=== PATIENT | female | born 1945 | race Caucasian/White ===

== ENCOUNTER → 2017-11-22 | Outpatient (CLI) | payer OTHER | END | disposition home or self-care (01) | LOC: RAH 08:27 | PROVIDERS: ATTEND Family Medicine | DX: R14.0 Abdominal distension (gaseous) (principal); R10.84 Generalized abdominal pain | CPT/HCPCS: 76700 ==

== ENCOUNTER → 2022-06-15 | Outpatient (CLI) | payer MEDICARE | END | disposition home or self-care (01) | LOC: SHCH 11:37 | PROVIDERS: ATTEND Internal Medicine Cardiovascular Disease | DX: I35.8 Other nonrheumatic aortic valve disorders (principal); I11.9 Hypertensive heart disease without heart failure; E78.5 Hyperlipidemia, unspecified | CPT/HCPCS: 93306 ==

== ENCOUNTER → 2022-06-17 | Outpatient (CLI) | payer MEDICARE | END | disposition home or self-care (01) | LOC: SHCH 12:51 | PROVIDERS: ATTEND Internal Medicine Cardiovascular Disease | DX: I87.2 Venous insufficiency (chronic) (peripheral) (principal); M71.21 Synovial cyst of popliteal space [Baker], right knee; I70.203 Unspecified atherosclerosis of native arteries of extremities, bilateral legs | CPT/HCPCS: 93925; 93970 ==

== ENCOUNTER → 2022-09-25 | Outpatient (CLI) | payer MEDICARE | END | disposition home or self-care (01) | LOC: SHCH 16:01 | PROVIDERS: ATTEND Internal Medicine Cardiovascular Disease | DX: I87.2 Venous insufficiency (chronic) (peripheral) (principal); I82.812 Embolism and thrombosis of superficial veins of left lower extremity; Z98.890 Other specified postprocedural states | CPT/HCPCS: 93971 ==

== ENCOUNTER → 2022-12-05 | Outpatient (CLI) | payer MEDICARE ==
[~2022-12-05] MED LIST: IOHEXOL 350 MG/ML 100ML INFUS..BTL IV ONE; IOHEXOL-350 50ML VIAL IV ONE
== END | disposition home or self-care (01) ==
LOC: RAH 10:20
PROVIDERS: ATTEND Internal Medicine Cardiovascular Disease
DX: Q25.46 Tortuous aortic arch (principal); I73.9 Peripheral vascular disease, unspecified; I70.8 Atherosclerosis of other arteries
CPT/HCPCS: 75635; Q9967 ×2

== ENCOUNTER 2022-12-30 21:32 | Inpatient (IN) | payer MEDICARE ==
[~2022-12-30] VITALS: Ht 162.6 cm; Wt 91.2 kg
[2022-12-30 21:36] LABS: ABG HCO3 17.3 mmol/L (21.0-28.0); ABG OXYGEN SATURATION 88.6 % (95.0-99.0); ABG PCO2 39 mmHg (32-45)
[2022-12-30] MEDS ORDERED: MORPHINE 2 MG SYG ONE (21:40)
[2022-12-30] MEDS ORDERED: NITROGLYCERIN 1GM OINT 1 INCH/1GM TD ONE ×2 (21:40→22:00)
[2022-12-30] MEDS ORDERED: FUROSEMIDE 40MG VIAL ONE (21:40)
[2022-12-30] MEDS ORDERED: ONDANSETRON 4MG INJ ONE (21:40)
[2022-12-30] MEDS ORDERED: ONDANSETRON 4MG INJ IVP ONE (22:00)
[2022-12-30] MEDS ORDERED: FUROSEMIDE 40MG VIAL IV ONE (22:00)
[2022-12-30] MEDS ORDERED: MORPHINE 2 MG SYG IVP ONE (22:00)
[2022-12-30] MEDS ORDERED: LORAZEPAM 2 MG/ML 1 ML VIAL IVP ONE (22:00)
[2022-12-30 22:07] LABS: APPEARANCE,URINE CLEAR (CLEAR); BASOPHILS % (AUTO) 0.6 % (0.0-5.0); BILIRUBIN,URINE NEGATIVE (NEGATIVE); COLOR,URINE YELLOW (YELLOW); EOSINOPHILS % (AUTO) 0.8 % (0.0-8.0); GLUCOSE, URINE (UA) 100 mg/dL (NEGATIVE); HEMATOCRIT 47.8 % (36-48); KETONES,URINE NEGATIVE (NEGATIVE); LEUKOCYTE ESTERASE ,URINE NEGATIVE Leu/uL (NEGATIVE); LYMPHOCYTES % (AUTO) 19.6 % (21.0-51.0); MEAN CORPUSCULAR HEMOGLOBIN 28.8 pg (27.0-33.0); MEAN CORPUSCULAR HGB CONC 31.8 g/dL (32.0-36.0); MEAN CORPUSCULAR VOLUME 90.5 fL (79-99); MONOCYTES % (AUTO) 3.6 % (3.0-13.0); NITRATE,URINE NEGATIVE (NEGATIVE); OCCULT BLOOD,URINE SMALL (NEGATIVE); PLATELET COUNT (AUTO) 307 K/uL (130-400); PROTEIN,URINE >=300 mg/dL (NEGATIVE); RED BLOOD CELL COUNT(AUTO) 5.28 MIL/uL (4.00-5.50); UROBILINOGEN,URINE 0.2 mg/dL (0.2-1.0); WHITE BLOOD COUNT (AUTO) 13.2 K/uL (4.8-10.8)
[2022-12-30 22:11] LABS: BACTERIA,URINE MOD /HPF (None Seen)
[2022-12-30] MEDS ORDERED: HYDRALAZINE 20MG/ML VIAL ONE (22:12)
[2022-12-30] MEDS ORDERED: ETOMIDATE 20MG VIAL ONE (22:26)
[2022-12-30] MEDS ORDERED: PROPOFOL 1000 MG/100 ML 100 ML IV ONE (22:28)
[2022-12-30] MEDS ORDERED: HYDRALAZINE 20MG/ML VIAL IV ONE (22:30)
[2022-12-30] MEDS ORDERED: CEFTRIAXONE 1G VIAL IVPB ONE (22:30)
[2022-12-30] MEDS ORDERED: FENTANYL 2500MCG+NS 250ML 250 ML IV ONE (22:49)
[2022-12-30 22:56] LABS: ALBUMIN 3.6 g/dL (3.5-5.0); CREATININE 1.3 mg/dL (0.5-1.5); POTASSIUM 4.3 mmol/L (3.5-5.1); TOTAL PROTEIN, SERUM 7.9 g/dL (6.0-8.3)
[2022-12-30] MEDS ORDERED: 0.9%NACL 1000ML 546 ML IV ONE (23:00)
[2022-12-30] MEDS ORDERED: NOREPINEPHRIN 4MG/NS 250ML 250 ML IV ONE (23:08)
[2022-12-30 23:37] LABS: ABG BASE EXCESS -2.6 mmol/L (-2.0-3.0); ABG HCO3 20.3 mmol/L (21.0-28.0); ABG OXYGEN SATURATION 99.4 % (95.0-99.0); ABG PCO2 30 mmHg (32-45)
[2022-12-31] VITALS (53 sets, daily range): BP systolic 89–189; BP diastolic 32–145
[2022-12-31] MEDS ORDERED: NOREPINEPHRIN 4MG/NS 250ML 250 ML IV SCH
[2022-12-31] MEDS: FENTANYL 2500MCG+NS 250ML IV.SOLN IV SCH ×2 (00:34→22:04)
[2022-12-31] MEDS: PROPOFOL 1000 MG/100 ML 100 ML IV SCH ×2 (00:34→03:10)
[2022-12-31] MEDS ORDERED: 0.9%NACL 1000ML 1,095 ML IV ONE (01:00)
[2022-12-31] MEDS ORDERED: NOREPINEPHRIN 4MG/NS 250ML 250 ML IV PRN (02:30)
[2022-12-31] MEDS ORDERED: ONDANSETRON 4MG INJ IVP PRN (02:30)
[2022-12-31] MEDS ORDERED: PROPOFOL 1000 MG/100 ML 100 ML IV PRN (02:30)
[2022-12-31] MEDS ORDERED: LABETALOL 20MG SYG IV PRN (02:30)
[2022-12-31] MEDS ORDERED: ACETAMINOPHEN 650 MG SUPPOSITORY RC PRN (02:30)
[2022-12-31] MEDS ORDERED: LACTULOSE 20 GM/30 ML UDCUP PO PRN (02:30)
[2022-12-31] MEDS ORDERED: TIZA4CAP8 PO (02:58)
[2022-12-31] MEDS ORDERED: NITR0.4T50 SL (02:58)
[2022-12-31] MEDS ORDERED: ROPI2TAB7 PO (02:58)
[2022-12-31] MEDS ORDERED: IOHEXOL 350 MG/ML 100ML INFUS..BTL IV ONE (03:08)
[2022-12-31 04:51] LABS: ABG BASE EXCESS 0.8 mmol/L (-2.0-3.0); ABG HCO3 24.1 mmol/L (21.0-28.0); ABG OXYGEN SATURATION 96.9 % (95.0-99.0); ABG PCO2 35 mmHg (32-45)
[2022-12-31] MEDS: INSULIN HUMULIN R 100 UNIT/ML 3ML SQ SCH ×3 (05:38→18:00)
[2022-12-31] MEDS: MIDAZOLAM 100MG-0.9% NS 100ML 50 ML IV PRN ×2 (05:39→19:11)
[2022-12-31] MEDS: CEFEPIME HCL 1 GM VIAL IVPB SCH ×3 (05:58→22:12)
[2022-12-31] MEDS: VANCOMYCIN 1G/250ML KIT 250 ML IV SCH (08:18)
[2022-12-31] MEDS: ENOXAPARIN SODIUM 30 MG/0.3 ML SQ SCH (08:22)
[2022-12-31 08:29] LABS: BASOPHILS % (AUTO) 0.5 % (0.0-5.0); EOSINOPHILS % (AUTO) 0.2 % (0.0-8.0); HEMATOCRIT 39.2 % (36-48); LYMPHOCYTES % (AUTO) 18.1 % (21.0-51.0); MEAN CORPUSCULAR HGB CONC 32.9 g/dL (32.0-36.0); MEAN CORPUSCULAR VOLUME 88.1 fL (79-99); MONOCYTES % (AUTO) 7.1 % (3.0-13.0); NEUTROPHILS % (AUTO) 73.8 % (40.0-77.0); PLATELET COUNT (AUTO) 223 K/uL (130-400); RED BLOOD CELL COUNT(AUTO) 4.45 MIL/uL (4.00-5.50); WHITE BLOOD COUNT (AUTO) 10.4 K/uL (4.8-10.8)
[2022-12-31 08:43] LABS: ALBUMIN 2.9 g/dL (3.5-5.0); CREATININE 1.2 mg/dL (0.5-1.5); POTASSIUM 3.5 mmol/L (3.5-5.1); TOTAL PROTEIN, SERUM 6.2 g/dL (6.0-8.3)
[2022-12-31 08:45] LABS: INR 1.05 (0.85-1.15); PROTHROMBIN TIME 11.4 SEC (9.6-11.6)
[2022-12-31 08:47] LABS: PARTIAL THROMBOPLASTIN TIME 25.6 SEC (26.3-35.5)
[2022-12-31] MEDS ORDERED: VANCOMYCIN KIT 1 GM/250 ML IV.KIT IV SCH (09:00)
[2022-12-31] MEDS ORDERED: KCL 20 MEQ ERTAB PO PRN (11:00)
[2022-12-31] MEDS ORDERED: FAMOTIDINE 20MG VIAL IV ONE (11:00)
[2022-12-31] MEDS ORDERED: DEXTROSE 50%-WATER 50 ML DISP.SYRIN IV ONE (11:31)
[2022-12-31] MEDS: FAMOTIDINE 20MG VIAL IV SCH ×2 (11:44→22:12)
[2022-12-31] MEDS: POTASSIUM CHLORIDE 20MEQ/100ML 100 ML IV PRN (11:52)
[2022-12-31] MEDS: MAGNESIUM 2GM PREMIX 50ML 50 ML IV PRN (11:52)
[2022-12-31] MEDS ORDERED: GLUCAGON 1MG KIT 1 MG ML IM PRN (12:00)
[2022-12-31] MEDS ORDERED: FURO20TA4 PO (12:21)
[2022-12-31] MEDS ORDERED: LOPE2CAP PO (12:21)
[2022-12-31] MEDS ORDERED: MECL-160 PO (12:21)
[2022-12-31] MEDS ORDERED: SUCCINYLCHOLINE CHLORIDE 20 MG/ML 10 ML VIAL IVP ONE (15:00)
[2022-12-31] MEDS ORDERED: ETOMIDATE 20MG VIAL IVP ONE (15:00)
[2022-12-31] MEDS: POTASSIUM CHLORIDE 10% ELIXIR 20 MEQ/15 ML UDCUP PO PRN ×2 (15:29→18:00)
[2022-12-31] MEDS: DEXTROSE 50%-WATER 50 ML DISP.SYRIN IV PRN (17:59)
[2022-12-31] MEDS ORDERED: SODIUM CHLORIDE 3% FOR INHALATION 4 ML/AMP VIAL.NEB IH ONE ×2 (18:04→22:40)
[2022-12-31] MEDS: IPRATROPIUM/ALBUTEROL SULFATE 3 ML SOLUTION IH SCH ×2 (19:35→23:27)
[2022-12-31] MEDS ORDERED: 0.9% NACL 500ML IV.SOLN 500 ML IV SCH (20:30)
[2022-12-31] MEDS: 0.9% NACL 500ML IV.SOLN 500 ML IV SCH ×2 (22:05→23:49)
[2022-12-31 22:23] LABS: ABG HCO3 22.1 mmol/L (21.0-28.0); ABG OXYGEN SATURATION 96.2 % (95.0-99.0); ABG PCO2 28 mmHg (32-45)
[2023-01-01] VITALS (47 sets, daily range): BP systolic 74–159; BP diastolic 35–70
[2023-01-01] MEDS: DEXTROSE 50%-WATER 50 ML DISP.SYRIN IV PRN ×2 (00:53→06:07)
[2023-01-01] MEDS: 0.9% NACL 500ML IV.SOLN 500 ML IV SCH ×2 (03:44→06:23)
[2023-01-01 03:58] LABS: BASOPHILS % (AUTO) 0.5 % (0.0-5.0); EOSINOPHILS % (AUTO) 2.1 % (0.0-8.0); HEMATOCRIT 35.8 % (36-48); LYMPHOCYTES % (AUTO) 17.2 % (21.0-51.0); MEAN CORPUSCULAR HEMOGLOBIN 29.3 pg (27.0-33.0); MEAN CORPUSCULAR HGB CONC 32.4 g/dL (32.0-36.0); MEAN CORPUSCULAR VOLUME 90.4 fL (79-99); MONOCYTES % (AUTO) 8.3 % (3.0-13.0); NEUTROPHILS % (AUTO) 71.4 % (40.0-77.0); PLATELET COUNT (AUTO) 201 K/uL (130-400); RED BLOOD CELL COUNT(AUTO) 3.96 MIL/uL (4.00-5.50); RED CELL DISTRIBUTION WIDTH 14.4 % (11.0-15.5); WHITE BLOOD COUNT (AUTO) 8.2 K/uL (4.8-10.8)
[2023-01-01 04:16] LABS: CREATININE 1.4 mg/dL (0.5-1.5); MAGNESIUM 2.4 mg/dL (1.80-2.40); PHOSPHORUS 3.2 mg/dL (2.5-4.9); POTASSIUM 3.5 mmol/L (3.5-5.1)
[2023-01-01 04:35] LABS: B-TYPE NATRIURETIC PEPTIDE 223 pg/mL (0-100)
[2023-01-01] MEDS: INSULIN HUMULIN R 100 UNIT/ML 3ML SQ SCH ×5 (06:00→23:15)
[2023-01-01] MEDS: CEFEPIME HCL 1 GM VIAL IVPB SCH ×3 (06:02→21:23)
[2023-01-01] MEDS: IPRATROPIUM/ALBUTEROL SULFATE 3 ML SOLUTION IH SCH ×5 (06:28→21:50)
[2023-01-01 07:23] LABS: CHOLESTEROL 96 mg/dL (<200); HDL CHOLESTEROL 37 mg/dL (35-85); LDL DIRECT 49 mg/dL (0-99); TRIGLYCERIDES 115 mg/dL (30-200)
[2023-01-01] MEDS: ASPIRIN 81MG CHEW TAB PO SCH (08:56)
[2023-01-01] MEDS: ENOXAPARIN SODIUM 30 MG/0.3 ML SQ SCH (08:56)
[2023-01-01] MEDS: FAMOTIDINE 20MG VIAL IV SCH ×2 (08:56→20:01)
[2023-01-01] MEDS: VANCOMYCIN 1G/250ML KIT 250 ML IV SCH (08:57)
[2023-01-01] MEDS ORDERED: DEXTROSE 5 %-0.45 % NACL 1,000 ML IV SCH (09:00)
[2023-01-01] MEDS ORDERED: ATORVASTATIN 20 MG TABLET PO SCH (09:00)
[2023-01-01 09:07] LABS: ABG BASE EXCESS -3.2 mmol/L (-2.0-3.0); ABG HCO3 20.9 mmol/L (21.0-28.0); ABG OXYGEN SATURATION 94.6 % (95.0-99.0); ABG PCO2 35 mmHg (32-45)
[2023-01-01 09:51] LABS: HEMOGLOBIN A1C 5.7 % (4.0-6.0)
[2023-01-01] MEDS: MIDAZOLAM 100MG-0.9% NS 100ML 50 ML IV PRN (13:19)
[2023-01-01] MEDS: FUROSEMIDE 40MG VIAL IV SCH ×2 (13:19→23:42)
[2023-01-01] MEDS: DEXMEDETOMIDINE 400MCG/NS100ML IV SCH ×2 (16:10→21:44)
[2023-01-01] MEDS: DIAZEPAM 5 MG TABLET PO PRN (16:10)
[2023-01-01] MEDS: POTASSIUM CHLORIDE 10MEQ/100ML 100 ML IV PRN (19:23)
[2023-01-01] MEDS: FENTANYL 2500MCG+NS 250ML IV.SOLN IV SCH (19:49)
[2023-01-01] MEDS: ATORVASTATIN 20 MG TABLET PO SCH (20:01)
[2023-01-01] MEDS: POTASSIUM CHLORIDE 20MEQ/100ML 100 ML IV PRN (23:44)
[2023-01-02] VITALS (43 sets, daily range): BP systolic 91–252; BP diastolic 39–155
[2023-01-02] MEDS: DEXMEDETOMIDINE 400MCG/NS100ML IV SCH ×3 (00:59→12:38)
[2023-01-02] MEDS: IPRATROPIUM/ALBUTEROL SULFATE 3 ML SOLUTION IH SCH ×6 (02:20→22:52)
[2023-01-02 03:45] LABS: ABG BASE EXCESS -0.9 mmol/L (-2.0-3.0); ABG HCO3 21.9 mmol/L (21.0-28.0); ABG OXYGEN SATURATION 96.5 % (95.0-99.0); ABG PCO2 32 mmHg (32-45)
[2023-01-02 04:10] LABS: BASOPHILS % (AUTO) 0.4 % (0.0-5.0); EOSINOPHILS % (AUTO) 3.7 % (0.0-8.0); HEMATOCRIT 35.4 % (36-48); LYMPHOCYTES % (AUTO) 19.2 % (21.0-51.0); MEAN CORPUSCULAR HEMOGLOBIN 29.2 pg (27.0-33.0); MEAN CORPUSCULAR HGB CONC 31.6 g/dL (32.0-36.0); MEAN CORPUSCULAR VOLUME 92.2 fL (79-99); MONOCYTES % (AUTO) 7.1 % (3.0-13.0); NEUTROPHILS % (AUTO) 69.2 % (40.0-77.0); PLATELET COUNT (AUTO) 183 K/uL (130-400); RED BLOOD CELL COUNT(AUTO) 3.84 MIL/uL (4.00-5.50); RED CELL DISTRIBUTION WIDTH 14.6 % (11.0-15.5); WHITE BLOOD COUNT (AUTO) 7.5 K/uL (4.8-10.8)
[2023-01-02 04:17] LABS: CREATININE 1.4 mg/dL (0.5-1.5); POTASSIUM 3.5 mmol/L (3.5-5.1)
[2023-01-02 04:40] LABS: B-TYPE NATRIURETIC PEPTIDE 75 pg/mL (0-100)
[2023-01-02] MEDS: POTASSIUM CHLORIDE 20MEQ/100ML 100 ML IV PRN (05:36)
[2023-01-02] MEDS: INSULIN HUMULIN R 100 UNIT/ML 3ML SQ SCH ×3 (06:00→18:00)
[2023-01-02] MEDS: CEFEPIME HCL 1 GM VIAL IVPB SCH ×3 (06:44→22:23)
[2023-01-02] MEDS: ASPIRIN 81MG CHEW TAB PO SCH (08:06)
[2023-01-02] MEDS: FAMOTIDINE 20MG VIAL IV SCH ×2 (08:06→20:10)
[2023-01-02] MEDS: DIAZEPAM 5 MG TABLET PO PRN (08:07)
[2023-01-02] MEDS: ENOXAPARIN SODIUM 30 MG/0.3 ML SQ SCH (08:07)
[2023-01-02] MEDS ORDERED: COMPOUND IV REFRIGERATED 1 EACH IVSOLN MISC PRN (09:30)
[2023-01-02] MEDS: VANCOMYCIN 1.25 GM/250 ML BAG 250 ML IV SCH (10:46)
[2023-01-02] MEDS ORDERED: LORAZEPAM 2 MG/ML 1 ML VIAL ONE (11:01)
[2023-01-02] MEDS ORDERED: PHARMACY COMMUNICATION MISC PRN (11:30)
[2023-01-02] MEDS ORDERED: ONDANSETRON 4MG INJ IV PRN (11:30)
[2023-01-02] MEDS ORDERED: LORAZEPAM 2 MG/ML 1 ML VIAL IVP SCH (12:00)
[2023-01-02] MEDS: FUROSEMIDE 40MG VIAL IV SCH (12:39)
[2023-01-02] MEDS: CHLORDIAZEPOXIDE HCL 25 MG CAP PO SCH ×3 (12:41→22:23)
[2023-01-02] MEDS: PROPOFOL 1000 MG/100 ML 100 ML IV SCH (17:53)
[2023-01-02] MEDS ORDERED: DIAZEPAM 5 MG TABLET PO PRN (19:00)
[2023-01-02] MEDS: [UNRECOGNIZED DRUG - REMARK] MISC SCH ×4 (20:10→23:50)
[2023-01-02] MEDS: ATORVASTATIN 20 MG TABLET PO SCH (20:10)
[2023-01-02] MEDS: LORAZEPAM 2 MG/ML 1 ML VIAL IVP PRN (23:48)
[2023-01-03] VITALS (56 sets, daily range): BP systolic 81–174; BP diastolic 31–109
[2023-01-03] MEDS: FUROSEMIDE 40MG VIAL IV SCH ×2 (00:07→11:57)
[2023-01-03] MEDS: [UNRECOGNIZED DRUG - REMARK] MISC SCH ×6 (00:08→06:04)
[2023-01-03] MEDS: PROPOFOL 1000 MG/100 ML 100 ML IV SCH ×5 (01:07→23:04)
[2023-01-03] MEDS: IPRATROPIUM/ALBUTEROL SULFATE 3 ML SOLUTION IH SCH ×7 (02:05→22:59)
[2023-01-03 04:22] LABS: BASOPHILS % (AUTO) 0.4 % (0.0-5.0); EOSINOPHILS % (AUTO) 2.8 % (0.0-8.0); HEMATOCRIT 34.7 % (36-48); LYMPHOCYTES % (AUTO) 10.4 % (21.0-51.0); MEAN CORPUSCULAR HEMOGLOBIN 29.1 pg (27.0-33.0); MEAN CORPUSCULAR VOLUME 91.1 fL (79-99); MONOCYTES % (AUTO) 7.6 % (3.0-13.0); NEUTROPHILS % (AUTO) 78.4 % (40.0-77.0); PLATELET COUNT (AUTO) 208 K/uL (130-400); RED BLOOD CELL COUNT(AUTO) 3.81 MIL/uL (4.00-5.50); RED CELL DISTRIBUTION WIDTH 14.6 % (11.0-15.5); WHITE BLOOD COUNT (AUTO) 9.3 K/uL (4.8-10.8)
[2023-01-03 04:32] LABS: CREATININE 1.4 mg/dL (0.5-1.5); MAGNESIUM 1.7 mg/dL (1.80-2.40); POTASSIUM 3.7 mmol/L (3.5-5.1)
[2023-01-03] MEDS: CHLORDIAZEPOXIDE HCL 25 MG CAP PO SCH ×3 (04:44→17:53)
[2023-01-03] MEDS: INSULIN HUMULIN R 100 UNIT/ML 3ML SQ SCH ×4 (06:00→18:00)
[2023-01-03] MEDS: MAGNESIUM 2GM PREMIX 50ML 50 ML IV PRN (06:02)
[2023-01-03] MEDS: CEFEPIME HCL 1 GM VIAL IVPB SCH ×3 (06:15→21:38)
[2023-01-03] MEDS: FAMOTIDINE 20MG VIAL IV SCH ×2 (10:03→21:38)
[2023-01-03] MEDS: ENOXAPARIN SODIUM 30 MG/0.3 ML SQ SCH (10:03)
[2023-01-03] MEDS: ASPIRIN 81MG CHEW TAB PO SCH (10:04)
[2023-01-03] MEDS: VANCOMYCIN 1.25 GM/250 ML BAG 250 ML IV SCH (10:05)
[2023-01-03] MEDS: THIAMINE HCL 100 MG/ML 2ML VIAL IVP SCH (10:09)
[2023-01-03] MEDS: FOLIC ACID 5 MG/ML VIAL IV SCH (10:16)
[2023-01-03] MEDS: FENTANYL 2500MCG+NS 250ML IV.SOLN IV SCH ×2 (12:02→21:18)
[2023-01-03] MEDS: ATORVASTATIN 20 MG TABLET PO SCH (21:38)
[2023-01-04] VITALS (61 sets, daily range): BP systolic 102–167; BP diastolic 37–114
[2023-01-04] MEDS: CHLORDIAZEPOXIDE HCL 25 MG CAP PO SCH ×4 (00:27→17:31)
[2023-01-04] MEDS: FUROSEMIDE 40MG VIAL IV SCH ×2 (01:04→12:31)
[2023-01-04] MEDS: IPRATROPIUM/ALBUTEROL SULFATE 3 ML SOLUTION IH SCH ×6 (01:37→22:44)
[2023-01-04 04:11] LABS: BASOPHILS % (AUTO) 0.6 % (0.0-5.0); EOSINOPHILS % (AUTO) 3.9 % (0.0-8.0); HEMATOCRIT 33.2 % (36-48); LYMPHOCYTES % (AUTO) 16.3 % (21.0-51.0); MEAN CORPUSCULAR HEMOGLOBIN 29.3 pg (27.0-33.0); MEAN CORPUSCULAR HGB CONC 32.2 g/dL (32.0-36.0); MONOCYTES % (AUTO) 12.9 % (3.0-13.0); NEUTROPHILS % (AUTO) 65.8 % (40.0-77.0); PLATELET COUNT (AUTO) 230 K/uL (130-400); RED BLOOD CELL COUNT(AUTO) 3.65 MIL/uL (4.00-5.50); RED CELL DISTRIBUTION WIDTH 14.6 % (11.0-15.5)
[2023-01-04 04:29] LABS: CREATININE 1.7 mg/dL (0.5-1.5); MAGNESIUM 2.2 mg/dL (1.80-2.40); POTASSIUM 3.4 mmol/L (3.5-5.1)
[2023-01-04] MEDS: CEFEPIME HCL 1 GM VIAL IVPB SCH ×3 (05:04→21:04)
[2023-01-04] MEDS: POTASSIUM CHLORIDE 10MEQ/100ML 100 ML IV PRN (05:06)
[2023-01-04] MEDS: INSULIN HUMULIN R 100 UNIT/ML 3ML SQ SCH ×4 (06:00→17:31)
[2023-01-04] MEDS: PROPOFOL 1000 MG/100 ML 100 ML IV SCH (06:11)
[2023-01-04] MEDS: FENTANYL 2500MCG+NS 250ML IV.SOLN IV SCH (07:16)
[2023-01-04] MEDS: FAMOTIDINE 20MG VIAL IV SCH ×2 (09:22→21:02)
[2023-01-04] MEDS: ASPIRIN 81MG CHEW TAB PO SCH (09:22)
[2023-01-04] MEDS: FOLIC ACID 5 MG/ML VIAL IV SCH (09:23)
[2023-01-04] MEDS: THIAMINE HCL 100 MG/ML 2ML VIAL IVP SCH (09:23)
[2023-01-04] MEDS: ENOXAPARIN SODIUM 30 MG/0.3 ML SQ SCH (09:25)
[2023-01-04] MEDS: VANCOMYCIN 1.25 GM/250 ML BAG 250 ML IV SCH (09:29)
[2023-01-04] MEDS: DEXMEDETOMIDINE 400MCG/NS100ML IV SCH ×3 (09:53→21:35)
[2023-01-04] MEDS ORDERED: POLYETHYLENE GLYCOL 3350 17 GM POWD.PACK PO SCH (12:30)
[2023-01-04] MEDS: LACTULOSE 20 GM/30 ML UDCUP PO SCH (12:31)
[2023-01-04] MEDS: LORAZEPAM 2 MG/ML 1 ML VIAL IVP PRN ×2 (12:59→17:59)
[2023-01-04] MEDS: ATORVASTATIN 20 MG TABLET PO SCH (21:02)
[2023-01-05] VITALS (48 sets, daily range): BP systolic 96–191; BP diastolic 36–115
[2023-01-05] MEDS: FUROSEMIDE 40MG VIAL IV SCH (00:05)
[2023-01-05] MEDS: CHLORDIAZEPOXIDE HCL 25 MG CAP PO SCH ×5 (00:06→23:43)
[2023-01-05] MEDS: DEXMEDETOMIDINE 400MCG/NS100ML IV SCH ×3 (02:51→10:05)
[2023-01-05] MEDS: IPRATROPIUM/ALBUTEROL SULFATE 3 ML SOLUTION IH SCH ×4 (03:00→18:32)
[2023-01-05 04:10] LABS: BASOPHILS % (AUTO) 0.3 % (0.0-5.0); EOSINOPHILS % (AUTO) 4.2 % (0.0-8.0); HEMATOCRIT 35.4 % (36-48); LYMPHOCYTES % (AUTO) 11.2 % (21.0-51.0); MEAN CORPUSCULAR HEMOGLOBIN 28.9 pg (27.0-33.0); MEAN CORPUSCULAR HGB CONC 31.6 g/dL (32.0-36.0); MEAN CORPUSCULAR VOLUME 91.2 fL (79-99); MONOCYTES % (AUTO) 10.5 % (3.0-13.0); NEUTROPHILS % (AUTO) 73.4 % (40.0-77.0); PLATELET COUNT (AUTO) 214 K/uL (130-400); RED BLOOD CELL COUNT(AUTO) 3.88 MIL/uL (4.00-5.50); RED CELL DISTRIBUTION WIDTH 14.6 % (11.0-15.5); WHITE BLOOD COUNT (AUTO) 7.7 K/uL (4.8-10.8)
[2023-01-05 04:26] LABS: CREATININE 1.8 mg/dL (0.5-1.5); MAGNESIUM 2.2 mg/dL (1.80-2.40); POTASSIUM 3.7 mmol/L (3.5-5.1)
[2023-01-05] MEDS: HYDRALAZINE 20MG/ML VIAL IV PRN ×2 (05:51→14:17)
[2023-01-05] MEDS: CEFEPIME HCL 1 GM VIAL IVPB SCH (05:51)
[2023-01-05] MEDS: INSULIN HUMULIN R 100 UNIT/ML 3ML SQ SCH ×4 (06:00→17:58)
[2023-01-05] MEDS: LORAZEPAM 2 MG/ML 1 ML VIAL IVP PRN ×5 (07:08→18:49)
[2023-01-05] MEDS: VANCOMYCIN 1.25 GM/250 ML BAG 250 ML IV SCH (07:57)
[2023-01-05] MEDS: ENOXAPARIN SODIUM 30 MG/0.3 ML SQ SCH (07:58)
[2023-01-05] MEDS: FAMOTIDINE 20MG VIAL IV SCH (07:58)
[2023-01-05] MEDS: ASPIRIN 81MG CHEW TAB PO SCH (07:58)
[2023-01-05] MEDS: THIAMINE HCL 100 MG/ML 2ML VIAL IVP SCH (07:58)
[2023-01-05] MEDS ORDERED: AMLODIPINE 5 MG TAB PO SCH (09:23)
[2023-01-05] MEDS ORDERED: MULTIVITAMIN WITH MINERALS TABLET PO ONE (09:29)
[2023-01-05] MEDS ORDERED: CHLORDIAZEPOXIDE HCL 25 MG CAP ONE (09:57)
[2023-01-05] MEDS: FOLIC ACID 5 MG/ML VIAL IV SCH (10:05)
[2023-01-05] MEDS: MIDAZOLAM 100MG-0.9% NS 100ML 50 ML IV PRN ×2 (11:14→18:34)
[2023-01-05] MEDS: LACTULOSE 20 GM/30 ML UDCUP PO SCH (11:41)
[2023-01-05] MEDS ORDERED: RENAL DOSE IV PRN (12:00)
[2023-01-05] MEDS: CHLORHEXIDINE GLUCONATE 473 ML MOUTHWASH MM SCH ×2 (13:46→17:51)
[2023-01-05] MEDS: METRONIDAZOLE 500MG/100ML BAG 100 ML IVPB SCH ×2 (14:04→21:09)
[2023-01-05] MEDS: ROPINIROLE HCL 1 MG TABLET PO SCH (20:26)
[2023-01-05] MEDS: ARTIFICIAL TEARS 3.5 GM OINTMENT OU SCH (20:26)
[2023-01-05] MEDS: ATORVASTATIN 20 MG TABLET PO SCH (20:27)
[2023-01-06] VITALS (44 sets, daily range): BP systolic 101–156; BP diastolic 37–98
[2023-01-06] MEDS: IPRATROPIUM/ALBUTEROL SULFATE 3 ML SOLUTION IH SCH ×4 (00:27→18:00)
[2023-01-06] MEDS: CHLORHEXIDINE GLUCONATE 473 ML MOUTHWASH MM SCH ×4 (03:01→17:21)
[2023-01-06] MEDS: MIDAZOLAM 100MG-0.9% NS 100ML 50 ML IV PRN (03:03)
[2023-01-06] MEDS: LORAZEPAM 2 MG/ML 1 ML VIAL IVP PRN ×3 (04:44→20:20)
[2023-01-06] MEDS: CEFEPIME HCL 1 GM VIAL IVPB SCH (04:51)
[2023-01-06] MEDS: METRONIDAZOLE 500MG/100ML BAG 100 ML IVPB SCH ×3 (04:51→21:10)
[2023-01-06] MEDS: CHLORDIAZEPOXIDE HCL 25 MG CAP PO SCH ×4 (04:51→23:07)
[2023-01-06 04:52] LABS: BASOPHILS % (AUTO) 0.5 % (0.0-5.0); EOSINOPHILS % (AUTO) 0.1 % (0.0-8.0); HEMATOCRIT 36.8 % (36-48); LYMPHOCYTES % (AUTO) 8.6 % (21.0-51.0); MEAN CORPUSCULAR HEMOGLOBIN 29.2 pg (27.0-33.0); MEAN CORPUSCULAR HGB CONC 32.3 g/dL (32.0-36.0); MEAN CORPUSCULAR VOLUME 90.4 fL (79-99); NEUTROPHILS % (AUTO) 79.1 % (40.0-77.0); PLATELET COUNT (AUTO) 232 K/uL (130-400); RED BLOOD CELL COUNT(AUTO) 4.07 MIL/uL (4.00-5.50); RED CELL DISTRIBUTION WIDTH 14.6 % (11.0-15.5); WHITE BLOOD COUNT (AUTO) 11.5 K/uL (4.8-10.8)
[2023-01-06 05:08] LABS: ALBUMIN 2.7 g/dL (3.5-5.0); CREATININE 1.8 mg/dL (0.5-1.5); MAGNESIUM 2.3 mg/dL (1.80-2.40); TOTAL PROTEIN, SERUM 6.8 g/dL (6.0-8.3)
[2023-01-06] MEDS: INSULIN HUMULIN R 100 UNIT/ML 3ML SQ SCH ×4 (06:00→17:21)
[2023-01-06 07:15] LABS: ABG BASE EXCESS 0.2 mmol/L (-2.0-3.0); ABG PCO2 32 mmHg (32-45)
[2023-01-06] MEDS: ROPINIROLE HCL 1 MG TABLET PO SCH ×3 (08:18→20:11)
[2023-01-06] MEDS: ASPIRIN 81MG CHEW TAB PO SCH (08:19)
[2023-01-06] MEDS: THIAMINE HCL 100 MG/ML 2ML VIAL IVP SCH (08:19)
[2023-01-06] MEDS: MULTIVITAMIN WITH MINERALS TABLET PO SCH (08:19)
[2023-01-06] MEDS: FAMOTIDINE 20MG VIAL IV SCH (08:19)
[2023-01-06] MEDS: ENOXAPARIN SODIUM 30 MG/0.3 ML SQ SCH (08:20)
[2023-01-06] MEDS: AMLODIPINE 5 MG TAB PO SCH (08:21)
[2023-01-06] MEDS: FOLIC ACID 5 MG/ML VIAL IV SCH (08:37)
[2023-01-06] MEDS: LACTULOSE 20 GM/30 ML UDCUP PO SCH (14:41)
[2023-01-06] MEDS: ATORVASTATIN 20 MG TABLET PO SCH (20:11)
[2023-01-06] MEDS: ARTIFICIAL TEARS 3.5 GM OINTMENT OU SCH (20:13)
[2023-01-07] VITALS (36 sets, daily range): BP systolic 107–189; BP diastolic 44–99
[2023-01-07 04:05] LABS: BASOPHILS % (AUTO) 0.4 % (0.0-5.0); EOSINOPHILS % (AUTO) 3.1 % (0.0-8.0); HEMATOCRIT 34.6 % (36-48); LYMPHOCYTES % (AUTO) 8.2 % (21.0-51.0); MEAN CORPUSCULAR HEMOGLOBIN 28.6 pg (27.0-33.0); MEAN CORPUSCULAR HGB CONC 30.9 g/dL (32.0-36.0); MEAN CORPUSCULAR VOLUME 92.5 fL (79-99); MONOCYTES % (AUTO) 7.4 % (3.0-13.0); NEUTROPHILS % (AUTO) 80.5 % (40.0-77.0); PLATELET COUNT (AUTO) 228 K/uL (130-400); RED BLOOD CELL COUNT(AUTO) 3.74 MIL/uL (4.00-5.50); RED CELL DISTRIBUTION WIDTH 14.6 % (11.0-15.5); WHITE BLOOD COUNT (AUTO) 9.2 K/uL (4.8-10.8)
[2023-01-07 04:21] LABS: ALBUMIN 2.4 g/dL (3.5-5.0); CREATININE 1.8 mg/dL (0.5-1.5); MAGNESIUM 2.2 mg/dL (1.80-2.40); POTASSIUM 3.6 mmol/L (3.5-5.1); TOTAL PROTEIN, SERUM 6.1 g/dL (6.0-8.3)
[2023-01-07] MEDS: CHLORDIAZEPOXIDE HCL 25 MG CAP PO SCH ×2 (05:03→13:25)
[2023-01-07] MEDS: METRONIDAZOLE 500MG/100ML BAG 100 ML IVPB SCH ×3 (05:04→22:04)
[2023-01-07] MEDS: CHLORHEXIDINE GLUCONATE 473 ML MOUTHWASH MM SCH ×4 (05:04→17:38)
[2023-01-07] MEDS: CEFEPIME HCL 1 GM VIAL IVPB SCH (05:04)
[2023-01-07] MEDS: INSULIN HUMULIN R 100 UNIT/ML 3ML SQ SCH ×4 (06:00→17:37)
[2023-01-07] MEDS: IPRATROPIUM/ALBUTEROL SULFATE 3 ML SOLUTION IH SCH ×5 (06:16→23:21)
[2023-01-07] MEDS: POTASSIUM CHLORIDE 10% ELIXIR 20 MEQ/15 ML UDCUP PO PRN (06:23)
[2023-01-07] MEDS: FAMOTIDINE 20MG VIAL IV SCH (07:54)
[2023-01-07] MEDS: MULTIVITAMIN WITH MINERALS TABLET PO SCH (07:54)
[2023-01-07] MEDS: ASPIRIN 81MG CHEW TAB PO SCH (07:55)
[2023-01-07] MEDS: ENOXAPARIN SODIUM 30 MG/0.3 ML SQ SCH (07:55)
[2023-01-07] MEDS: ROPINIROLE HCL 1 MG TABLET PO SCH ×3 (07:55→20:15)
[2023-01-07] MEDS: THIAMINE HCL 100 MG/ML 2ML VIAL IVP SCH (07:55)
[2023-01-07] MEDS: AMLODIPINE 5 MG TAB PO SCH (07:55)
[2023-01-07] MEDS: FOLIC ACID 5 MG/ML VIAL IV SCH (10:52)
[2023-01-07] MEDS ORDERED: CHLORDIAZEPOXIDE HCL 25 MG CAP PO SCH (13:00)
[2023-01-07] MEDS: HYDRALAZINE 20MG/ML VIAL IV PRN (13:09)
[2023-01-07] MEDS: LACTULOSE 20 GM/30 ML UDCUP PO SCH (13:09)
[2023-01-07] MEDS: ARTIFICIAL TEARS 3.5 GM OINTMENT OU SCH (20:15)
[2023-01-07] MEDS: ATORVASTATIN 20 MG TABLET PO SCH (20:15)
[2023-01-08] VITALS (43 sets, daily range): BP systolic 91–204; BP diastolic 32–105
[2023-01-08] MEDS: DEXMEDETOMIDINE 400MCG/NS100ML IV SCH (00:08)
[2023-01-08] MEDS: CHLORHEXIDINE GLUCONATE 473 ML MOUTHWASH MM SCH ×5 (00:09→23:45)
[2023-01-08] MEDS: CHLORDIAZEPOXIDE HCL 25 MG CAP PO SCH ×3 (01:02→23:48)
[2023-01-08 03:52] LABS: BASOPHILS % (AUTO) 0.5 % (0.0-5.0); EOSINOPHILS % (AUTO) 4.8 % (0.0-8.0); HEMATOCRIT 33.3 % (36-48); LYMPHOCYTES % (AUTO) 15.5 % (21.0-51.0); MEAN CORPUSCULAR HEMOGLOBIN 28.5 pg (27.0-33.0); MEAN CORPUSCULAR HGB CONC 30.9 g/dL (32.0-36.0); MEAN CORPUSCULAR VOLUME 92.2 fL (79-99); MONOCYTES % (AUTO) 11.2 % (3.0-13.0); NEUTROPHILS % (AUTO) 67.3 % (40.0-77.0); PLATELET COUNT (AUTO) 232 K/uL (130-400); RED BLOOD CELL COUNT(AUTO) 3.61 MIL/uL (4.00-5.50); RED CELL DISTRIBUTION WIDTH 14.4 % (11.0-15.5); WHITE BLOOD COUNT (AUTO) 7.7 K/uL (4.8-10.8)
[2023-01-08 04:04] LABS: ALBUMIN 2.4 g/dL (3.5-5.0); CREATININE 1.7 mg/dL (0.5-1.5); POTASSIUM 3.3 mmol/L (3.5-5.1); TOTAL PROTEIN, SERUM 5.9 g/dL (6.0-8.3)
[2023-01-08] MEDS: INSULIN HUMULIN R 100 UNIT/ML 3ML SQ SCH ×5 (06:00→23:43)
[2023-01-08] MEDS: CEFEPIME HCL 1 GM VIAL IVPB SCH (06:07)
[2023-01-08] MEDS: METRONIDAZOLE 500MG/100ML BAG 100 ML IVPB SCH ×3 (06:14→22:27)
[2023-01-08] MEDS: IPRATROPIUM/ALBUTEROL SULFATE 3 ML SOLUTION IH SCH ×4 (06:37→23:17)
[2023-01-08] MEDS ORDERED: METOPROLOL TARTRATE 25 MG TAB PO SCH ×2 (09:15→10:30)
[2023-01-08] MEDS: FAMOTIDINE 20MG VIAL IV SCH (09:16)
[2023-01-08] MEDS: ROPINIROLE HCL 1 MG TABLET PO SCH ×3 (09:16→20:10)
[2023-01-08] MEDS: THIAMINE HCL 100 MG/ML 2ML VIAL IVP SCH (09:16)
[2023-01-08] MEDS: HYDRALAZINE 20MG/ML VIAL IV PRN (09:16)
[2023-01-08] MEDS: MULTIVITAMIN WITH MINERALS TABLET PO SCH (09:16)
[2023-01-08] MEDS: AMLODIPINE 5 MG TAB PO SCH (09:17)
[2023-01-08] MEDS: ASPIRIN 81MG CHEW TAB PO SCH (09:17)
[2023-01-08] MEDS: ENOXAPARIN SODIUM 30 MG/0.3 ML SQ SCH (09:18)
[2023-01-08] MEDS: FOLIC ACID 5 MG/ML VIAL IV SCH (09:19)
[2023-01-08] MEDS ORDERED: FLUCONAZOLE 100 MG TAB PO ONE (11:00)
[2023-01-08] MEDS: LACTULOSE 20 GM/30 ML UDCUP PO SCH (12:28)
[2023-01-08] MEDS ORDERED: NS IV SCH (12:30)
[2023-01-08] MEDS ORDERED: MIDAZOLAM IV SCH (12:30)
[2023-01-08] MEDS ORDERED: MIDAZOLAM 50MG-0.9% NS 50ML 50 ML BAG IV SCH (12:30)
[2023-01-08] MEDS ORDERED: MIDAZOLAM 100MG-0.9% NS 100ML 100ML BAG IV PRN (13:00)
[2023-01-08] MEDS: NYSTATIN 15 GM POWDER TP SCH ×2 (17:34→22:23)
[2023-01-08] MEDS: METOPROLOL TARTRATE 25 MG TAB PO SCH (20:09)
[2023-01-08] MEDS: ATORVASTATIN 20 MG TABLET PO SCH (20:09)
[2023-01-08] MEDS: ARTIFICIAL TEARS 3.5 GM OINTMENT OU SCH (22:21)
[2023-01-08] MEDS: MIDAZOLAM 100MG-0.9% NS 100ML 100 ML IV SCH (22:51)
[2023-01-09] VITALS (25 sets, daily range): BP systolic 122–184; BP diastolic 40–94
[2023-01-09 03:59] LABS: BASOPHILS % (AUTO) 0.4 % (0.0-5.0); EOSINOPHILS % (AUTO) 3.5 % (0.0-8.0); HEMATOCRIT 36.5 % (36-48); LYMPHOCYTES % (AUTO) 17.9 % (21.0-51.0); MEAN CORPUSCULAR HEMOGLOBIN 28.6 pg (27.0-33.0); MEAN CORPUSCULAR HGB CONC 30.7 g/dL (32.0-36.0); MEAN CORPUSCULAR VOLUME 93.1 fL (79-99); MONOCYTES % (AUTO) 9.3 % (3.0-13.0); NEUTROPHILS % (AUTO) 68.6 % (40.0-77.0); PLATELET COUNT (AUTO) 214 K/uL (130-400); RED BLOOD CELL COUNT(AUTO) 3.92 MIL/uL (4.00-5.50); RED CELL DISTRIBUTION WIDTH 14.4 % (11.0-15.5); WHITE BLOOD COUNT (AUTO) 9.6 K/uL (4.8-10.8)
[2023-01-09 04:19] LABS: ALBUMIN 2.7 g/dL (3.5-5.0); CREATININE 1.6 mg/dL (0.5-1.5); MAGNESIUM 2.3 mg/dL (1.80-2.40); PHOSPHORUS 3.2 mg/dL (2.5-4.9); POTASSIUM 4.1 mmol/L (3.5-5.1); TOTAL PROTEIN, SERUM 6.4 g/dL (6.0-8.3)
[2023-01-09] MEDS: CEFEPIME HCL 1 GM VIAL IVPB SCH (05:03)
[2023-01-09] MEDS: CHLORHEXIDINE GLUCONATE 473 ML MOUTHWASH MM SCH ×3 (05:04→17:49)
[2023-01-09] MEDS: INSULIN HUMULIN R 100 UNIT/ML 3ML SQ SCH ×3 (05:25→18:00)
[2023-01-09] MEDS: METRONIDAZOLE 500MG/100ML BAG 100 ML IVPB SCH ×3 (06:02→21:11)
[2023-01-09] MEDS: IPRATROPIUM/ALBUTEROL SULFATE 3 ML SOLUTION IH SCH ×3 (06:23→23:39)
[2023-01-09 06:28] LABS: ABG BASE EXCESS 1.9 mmol/L (-2.0-3.0); ABG HCO3 26.1 mmol/L (21.0-28.0); ABG OXYGEN SATURATION 98.2 % (95.0-99.0); ABG PCO2 39 mmHg (32-45)
[2023-01-09] MEDS: MULTIVITAMIN WITH MINERALS TABLET PO SCH (08:17)
[2023-01-09] MEDS: FAMOTIDINE 20MG VIAL IV SCH (08:18)
[2023-01-09] MEDS: ASPIRIN 81MG CHEW TAB PO SCH (08:18)
[2023-01-09] MEDS: METOPROLOL TARTRATE 25 MG TAB PO SCH ×2 (08:19→21:11)
[2023-01-09] MEDS: Vitamin B Complex/Vit C/Folic Acid PO SCH (08:19)
[2023-01-09] MEDS: ROPINIROLE HCL 1 MG TABLET PO SCH ×3 (08:19→21:11)
[2023-01-09] MEDS: FUROSEMIDE 40 MG TABLET PO SCH (08:19)
[2023-01-09] MEDS: AMLODIPINE 5 MG TAB PO SCH (08:19)
[2023-01-09] MEDS: THIAMINE HCL 100 MG TABLET PO SCH (08:19)
[2023-01-09] MEDS: ENOXAPARIN SODIUM 30 MG/0.3 ML SQ SCH (08:20)
[2023-01-09] MEDS: NYSTATIN 15 GM POWDER TP SCH ×3 (08:20→21:11)
[2023-01-09] MEDS ORDERED: FLUCONAZOLE 100 MG TAB PO SCH (09:00)
[2023-01-09] MEDS: MIDAZOLAM 100MG-0.9% NS 100ML 100 ML IV SCH (10:33)
[2023-01-09] MEDS: LACTULOSE 20 GM/30 ML UDCUP PO SCH (12:01)
[2023-01-09] MEDS: CHLORDIAZEPOXIDE HCL 25 MG CAP PO SCH ×2 (13:30→21:11)
[2023-01-09] MEDS ORDERED: PROPOFOL 1000 MG/100 ML IV PRN (17:00)
[2023-01-09] MEDS: PROPOFOL 1000 MG/100 ML 100 ML IV SCH (17:14)
[2023-01-09] MEDS: ARTIFICIAL TEARS 3.5 GM OINTMENT OU SCH (21:10)
[2023-01-09] MEDS: ATORVASTATIN 20 MG TABLET PO SCH (21:11)
[2023-01-10] VITALS (24 sets, daily range): BP systolic 98–175; BP diastolic 44–94
[2023-01-10] MEDS: CHLORHEXIDINE GLUCONATE 473 ML MOUTHWASH MM SCH ×4 (02:36→17:59)
[2023-01-10] MEDS: PROPOFOL 1000 MG/100 ML 100 ML IV SCH ×2 (02:37→18:19)
[2023-01-10 03:31] LABS: ABG BASE EXCESS 1.8 mmol/L (-2.0-3.0); ABG HCO3 25.3 mmol/L (21.0-28.0); ABG OXYGEN SATURATION 97.9 % (95.0-99.0); ABG PCO2 36 mmHg (32-45)
[2023-01-10 04:59] LABS: BASOPHILS % (AUTO) 0.5 % (0.0-5.0); EOSINOPHILS % (AUTO) 3.2 % (0.0-8.0); LYMPHOCYTES % (AUTO) 15.9 % (21.0-51.0); MEAN CORPUSCULAR HEMOGLOBIN 28.8 pg (27.0-33.0); MEAN CORPUSCULAR HGB CONC 31.4 g/dL (32.0-36.0); MEAN CORPUSCULAR VOLUME 91.6 fL (79-99); MONOCYTES % (AUTO) 6.5 % (3.0-13.0); NEUTROPHILS % (AUTO) 73.5 % (40.0-77.0); PLATELET COUNT (AUTO) 236 K/uL (130-400); RED BLOOD CELL COUNT(AUTO) 3.82 MIL/uL (4.00-5.50); RED CELL DISTRIBUTION WIDTH 14.5 % (11.0-15.5); WHITE BLOOD COUNT (AUTO) 10.4 K/uL (4.8-10.8)
[2023-01-10 05:11] LABS: CREATININE 1.6 mg/dL (0.5-1.5); POTASSIUM 3.4 mmol/L (3.5-5.1)
[2023-01-10] MEDS: METRONIDAZOLE 500MG/100ML BAG 100 ML IVPB SCH ×3 (05:56→21:02)
[2023-01-10] MEDS: CEFEPIME HCL 1 GM VIAL IVPB SCH (05:56)
[2023-01-10] MEDS: INSULIN HUMULIN R 100 UNIT/ML 3ML SQ SCH ×4 (06:00→17:58)
[2023-01-10] MEDS: IPRATROPIUM/ALBUTEROL SULFATE 3 ML SOLUTION IH SCH ×4 (06:35→23:28)
[2023-01-10] MEDS ORDERED: VANCOMYCIN PROTOCOL PER PHARMACY IV SCH (07:30)
[2023-01-10] MEDS: MULTIVITAMIN WITH MINERALS TABLET PO SCH (08:19)
[2023-01-10] MEDS: FAMOTIDINE 20MG VIAL IV SCH (08:19)
[2023-01-10] MEDS: VANCOMYCIN 1G/250ML KIT 250 ML IV SCH (08:20)
[2023-01-10] MEDS: FUROSEMIDE 40 MG TABLET PO SCH (08:21)
[2023-01-10] MEDS: ASPIRIN 81MG CHEW TAB PO SCH (08:21)
[2023-01-10] MEDS: ROPINIROLE HCL 1 MG TABLET PO SCH ×3 (08:22→20:15)
[2023-01-10] MEDS: Vitamin B Complex/Vit C/Folic Acid PO SCH (08:22)
[2023-01-10] MEDS: CHLORDIAZEPOXIDE HCL 25 MG CAP PO SCH ×3 (08:22→20:14)
[2023-01-10] MEDS: METOPROLOL TARTRATE 25 MG TAB PO SCH ×2 (08:22→20:15)
[2023-01-10] MEDS: THIAMINE HCL 100 MG TABLET PO SCH (08:22)
[2023-01-10] MEDS: AMLODIPINE 5 MG TAB PO SCH (08:22)
[2023-01-10] MEDS: NYSTATIN 15 GM POWDER TP SCH ×3 (08:23→20:15)
[2023-01-10] MEDS: ENOXAPARIN SODIUM 30 MG/0.3 ML SQ SCH (08:23)
[2023-01-10] MEDS ORDERED: FUROSEMIDE 40MG VIAL IV ONE (12:00)
[2023-01-10] MEDS: HYDRALAZINE 20MG/ML VIAL IV PRN (12:53)
[2023-01-10] MEDS: LACTULOSE 20 GM/30 ML UDCUP PO SCH (13:00)
[2023-01-10] MEDS: POTASSIUM CHLORIDE 20MEQ/100ML 100 ML IV PRN (15:41)
[2023-01-10] MEDS: ARTIFICIAL TEARS 3.5 GM OINTMENT OU SCH (20:14)
[2023-01-10] MEDS: ATORVASTATIN 20 MG TABLET PO SCH (20:14)
[2023-01-11] VITALS (23 sets, daily range): BP systolic 117–190; BP diastolic 42–92
[2023-01-11] MEDS: CHLORHEXIDINE GLUCONATE 473 ML MOUTHWASH MM SCH ×4 (00:30→17:38)
[2023-01-11 03:35] LABS: ABG BASE EXCESS 6.2 mmol/L (-2.0-3.0); ABG HCO3 29.4 mmol/L (21.0-28.0); ABG OXYGEN SATURATION 98.4 % (95.0-99.0); ABG PCO2 37 mmHg (32-45)
[2023-01-11] MEDS: METRONIDAZOLE 500MG/100ML BAG 100 ML IVPB SCH ×3 (05:22→20:50)
[2023-01-11] MEDS: CEFEPIME HCL 1 GM VIAL IVPB SCH (05:22)
[2023-01-11] MEDS: PROPOFOL 1000 MG/100 ML 100 ML IV SCH (05:27)
[2023-01-11 05:56] LABS: BASOPHILS % (AUTO) 0.4 % (0.0-5.0); LYMPHOCYTES % (AUTO) 12.2 % (21.0-51.0); MEAN CORPUSCULAR HEMOGLOBIN 28.6 pg (27.0-33.0); MEAN CORPUSCULAR HGB CONC 31.1 g/dL (32.0-36.0); MEAN CORPUSCULAR VOLUME 91.8 fL (79-99); MONOCYTES % (AUTO) 4.9 % (3.0-13.0); NEUTROPHILS % (AUTO) 78.1 % (40.0-77.0); PLATELET COUNT (AUTO) 193 K/uL (130-400); RED BLOOD CELL COUNT(AUTO) 3.92 MIL/uL (4.00-5.50); RED CELL DISTRIBUTION WIDTH 14.3 % (11.0-15.5); WHITE BLOOD COUNT (AUTO) 11.4 K/uL (4.8-10.8)
[2023-01-11] MEDS: INSULIN HUMULIN R 100 UNIT/ML 3ML SQ SCH ×4 (06:00→17:40)
[2023-01-11 06:09] LABS: CREATININE 1.7 mg/dL (0.5-1.5); POTASSIUM 3.1 mmol/L (3.5-5.1)
[2023-01-11] MEDS: POTASSIUM CHLORIDE 10% ELIXIR 20 MEQ/15 ML UDCUP PO PRN ×2 (06:38→08:53)
[2023-01-11] MEDS: IPRATROPIUM/ALBUTEROL SULFATE 3 ML SOLUTION IH SCH ×4 (06:40→23:22)
[2023-01-11] MEDS: VANCOMYCIN 1G/250ML KIT 250 ML IV SCH (08:44)
[2023-01-11] MEDS: THIAMINE HCL 100 MG TABLET PO SCH (08:46)
[2023-01-11] MEDS: METOPROLOL TARTRATE 25 MG TAB PO SCH ×2 (08:47→20:49)
[2023-01-11] MEDS: CHLORDIAZEPOXIDE HCL 25 MG CAP PO SCH ×3 (08:47→20:49)
[2023-01-11] MEDS: ROPINIROLE HCL 1 MG TABLET PO SCH ×3 (08:47→20:49)
[2023-01-11] MEDS: ASPIRIN 81MG CHEW TAB PO SCH (08:47)
[2023-01-11] MEDS: MULTIVITAMIN WITH MINERALS TABLET PO SCH (08:47)
[2023-01-11] MEDS: Vitamin B Complex/Vit C/Folic Acid PO SCH (08:47)
[2023-01-11] MEDS: AMLODIPINE 5 MG TAB PO SCH (08:47)
[2023-01-11] MEDS: FAMOTIDINE 20MG VIAL IV SCH (08:48)
[2023-01-11] MEDS: ENOXAPARIN SODIUM 30 MG/0.3 ML SQ SCH (08:48)
[2023-01-11] MEDS: NYSTATIN 15 GM POWDER TP SCH ×3 (08:48→20:50)
[2023-01-11] MEDS: FUROSEMIDE 40 MG TABLET PO SCH (08:51)
[2023-01-11] MEDS: LACTULOSE 20 GM/30 ML UDCUP PO SCH (11:10)
[2023-01-11 12:33] LABS: MAGNESIUM 1.9 mg/dL (1.80-2.40); POTASSIUM 3.8 mmol/L (3.5-5.1)
[2023-01-11] MEDS: HYDRALAZINE 20MG/ML VIAL IV PRN (15:45)
[2023-01-11] MEDS: ACETAMINOPHEN 325 MG TAB PO PRN (17:39)
[2023-01-11] MEDS: ATORVASTATIN 20 MG TABLET PO SCH (20:49)
[2023-01-11] MEDS: ARTIFICIAL TEARS 3.5 GM OINTMENT OU SCH (20:50)
[2023-01-12] VITALS (37 sets, daily range): BP systolic 86–196; BP diastolic 42–82
[2023-01-12 03:50] LABS: ABG BASE EXCESS 4.5 mmol/L (-2.0-3.0); ABG HCO3 27.4 mmol/L (21.0-28.0); ABG OXYGEN SATURATION 87.7 % (95.0-99.0); ABG PCO2 35 mmHg (32-45)
[2023-01-12 04:02] LABS: ABG BASE EXCESS 5.5 mmol/L (-2.0-3.0); ABG OXYGEN SATURATION 98.4 % (95.0-99.0); ABG PCO2 34 mmHg (32-45)
[2023-01-12 05:36] LABS: BASOPHILS % (AUTO) 0.7 % (0.0-5.0); EOSINOPHILS % (AUTO) 3.1 % (0.0-8.0); HEMATOCRIT 35.5 % (36-48); LYMPHOCYTES % (AUTO) 14.1 % (21.0-51.0); MEAN CORPUSCULAR HEMOGLOBIN 28.8 pg (27.0-33.0); MEAN CORPUSCULAR HGB CONC 31.8 g/dL (32.0-36.0); MEAN CORPUSCULAR VOLUME 90.3 fL (79-99); MONOCYTES % (AUTO) 6.4 % (3.0-13.0); NEUTROPHILS % (AUTO) 75.1 % (40.0-77.0); PLATELET COUNT (AUTO) 189 K/uL (130-400); RED BLOOD CELL COUNT(AUTO) 3.93 MIL/uL (4.00-5.50); RED CELL DISTRIBUTION WIDTH 14.1 % (11.0-15.5); WHITE BLOOD COUNT (AUTO) 9.5 K/uL (4.8-10.8)
[2023-01-12 05:49] LABS: CREATININE 1.7 mg/dL (0.5-1.5); POTASSIUM 3.4 mmol/L (3.5-5.1)
[2023-01-12] MEDS: INSULIN HUMULIN R 100 UNIT/ML 3ML SQ SCH ×3 (06:00→17:36)
[2023-01-12] MEDS: IPRATROPIUM/ALBUTEROL SULFATE 3 ML SOLUTION IH SCH ×4 (06:37→23:33)
[2023-01-12] MEDS: METRONIDAZOLE 500MG/100ML BAG 100 ML IVPB SCH ×2 (07:12→13:11)
[2023-01-12] MEDS: CEFEPIME HCL 1 GM VIAL IVPB SCH (07:12)
[2023-01-12] MEDS: POTASSIUM CHLORIDE 20MEQ/100ML 100 ML IV PRN (07:46)
[2023-01-12] MEDS: MULTIVITAMIN WITH MINERALS TABLET PO SCH (08:00)
[2023-01-12] MEDS: METOPROLOL TARTRATE 25 MG TAB PO SCH ×2 (08:03→20:34)
[2023-01-12] MEDS: ASPIRIN 81MG CHEW TAB PO SCH (08:03)
[2023-01-12] MEDS: FUROSEMIDE 40 MG TABLET PO SCH (08:03)
[2023-01-12] MEDS: ENOXAPARIN SODIUM 30 MG/0.3 ML SQ SCH (08:06)
[2023-01-12] MEDS: AMLODIPINE 5 MG TAB PO SCH (08:06)
[2023-01-12] MEDS: Vitamin B Complex/Vit C/Folic Acid PO SCH (08:06)
[2023-01-12] MEDS: ROPINIROLE HCL 1 MG TABLET PO SCH ×3 (08:06→20:33)
[2023-01-12] MEDS: THIAMINE HCL 100 MG TABLET PO SCH (08:06)
[2023-01-12] MEDS: CHLORHEXIDINE GLUCONATE 473 ML MOUTHWASH MM SCH ×4 (08:07→18:36)
[2023-01-12] MEDS: FAMOTIDINE 20MG VIAL IV SCH (08:18)
[2023-01-12] MEDS: NYSTATIN 15 GM POWDER TP SCH ×3 (08:32→20:34)
[2023-01-12] MEDS ORDERED: EPHEDRINE SULFATE 50 MG/ML AMPULE ONE (08:59)
[2023-01-12] MEDS ORDERED: PROPOFOL 10 MG/ML 20ML VIAL IV ONE (08:59)
[2023-01-12] MEDS ORDERED: LIDOCAINE PF 100MG/5ML (2%) SYRINGE 5ML ONE (09:00)
[2023-01-12] MEDS ORDERED: PHENYLEPHRINE HCL 10 MG/ML 1ML VIAL IV ONE (09:00)
[2023-01-12] MEDS: CHLORDIAZEPOXIDE HCL 25 MG CAP PO SCH ×3 (09:43→20:32)
[2023-01-12] MEDS: VANCOMYCIN 1G/250ML KIT 250 ML IV SCH (10:17)
[2023-01-12] MEDS: LACTULOSE 20 GM/30 ML UDCUP PO SCH (13:00)
[2023-01-12] MEDS: LINEZOLID 600 MG/ISO-OSM 300 ML IV SCH ×2 (15:12→15:36)
[2023-01-12] MEDS: FLUCONAZOLE 200 MG/NS 100 ML 100 ML IV SCH (15:12)
[2023-01-12] MEDS ORDERED: PHARMACY COMMUNICATION MISC SCH (15:30)
[2023-01-12] MEDS: HYDRALAZINE 20MG/ML VIAL IV PRN (17:32)
[2023-01-12] MEDS: PROPOFOL 1000 MG/100 ML 100 ML IV SCH (20:06)
[2023-01-12] MEDS: ARTIFICIAL TEARS 3.5 GM OINTMENT OU SCH (20:34)
[2023-01-12] MEDS: ATORVASTATIN 20 MG TABLET PO SCH (20:34)
[2023-01-13] VITALS (60 sets, daily range): BP systolic 115–176; BP diastolic 49–88
[2023-01-13] MEDS: CHLORHEXIDINE GLUCONATE 473 ML MOUTHWASH MM SCH ×4 (00:20→18:37)
[2023-01-13] MEDS: LINEZOLID 600 MG/ISO-OSM 300 ML IV SCH ×2 (03:11→15:36)
[2023-01-13] MEDS: PROPOFOL 1000 MG/100 ML 100 ML IV SCH (03:12)
[2023-01-13 03:25] LABS: ABG HCO3 24.2 mmol/L (21.0-28.0); ABG OXYGEN SATURATION 98.6 % (95.0-99.0); ABG PCO2 28 mmHg (32-45)
[2023-01-13 04:33] LABS: ALBUMIN 2.4 g/dL (3.5-5.0); CREATININE 1.7 mg/dL (0.5-1.5); POTASSIUM 3.3 mmol/L (3.5-5.1)
[2023-01-13 04:51] LABS: BASOPHILS % (AUTO) 0.6 % (0.0-5.0); EOSINOPHILS % (AUTO) 3.5 % (0.0-8.0); HEMATOCRIT 31.9 % (36-48); LYMPHOCYTES % (AUTO) 15.3 % (21.0-51.0); MEAN CORPUSCULAR HEMOGLOBIN 28.8 pg (27.0-33.0); MEAN CORPUSCULAR HGB CONC 31.7 g/dL (32.0-36.0); MEAN CORPUSCULAR VOLUME 90.9 fL (79-99); MONOCYTES % (AUTO) 7.5 % (3.0-13.0); NEUTROPHILS % (AUTO) 72.8 % (40.0-77.0); PLATELET COUNT (AUTO) 151 K/uL (130-400); RED BLOOD CELL COUNT(AUTO) 3.51 MIL/uL (4.00-5.50); RED CELL DISTRIBUTION WIDTH 14.2 % (11.0-15.5); WHITE BLOOD COUNT (AUTO) 8.8 K/uL (4.8-10.8)
[2023-01-13] MEDS: INSULIN HUMULIN R 100 UNIT/ML 3ML SQ SCH ×4 (06:00→18:00)
[2023-01-13] MEDS: POTASSIUM CHLORIDE 10% ELIXIR 20 MEQ/15 ML UDCUP PO PRN ×5 (06:14→14:26)
[2023-01-13] MEDS: IPRATROPIUM/ALBUTEROL SULFATE 3 ML SOLUTION IH SCH ×3 (06:32→19:03)
[2023-01-13] MEDS: Vitamin B Complex/Vit C/Folic Acid PO SCH (08:28)
[2023-01-13] MEDS: THIAMINE HCL 100 MG TABLET PO SCH (08:28)
[2023-01-13] MEDS: METOPROLOL TARTRATE 25 MG TAB PO SCH ×2 (08:28→20:37)
[2023-01-13] MEDS: ASPIRIN 81MG CHEW TAB PO SCH (08:28)
[2023-01-13] MEDS: CHLORDIAZEPOXIDE HCL 25 MG CAP PO SCH ×3 (08:28→20:36)
[2023-01-13] MEDS: AMLODIPINE 5 MG TAB PO SCH (08:28)
[2023-01-13] MEDS: ROPINIROLE HCL 1 MG TABLET PO SCH ×3 (08:28→20:37)
[2023-01-13] MEDS: ENOXAPARIN SODIUM 30 MG/0.3 ML SQ SCH (08:29)
[2023-01-13] MEDS: MULTIVITAMIN WITH MINERALS TABLET PO SCH (08:29)
[2023-01-13] MEDS: FUROSEMIDE 40 MG TABLET PO SCH (08:29)
[2023-01-13] MEDS: NYSTATIN 15 GM POWDER TP SCH ×3 (08:30→20:37)
[2023-01-13] MEDS: FAMOTIDINE 20MG VIAL IV SCH (09:58)
[2023-01-13] MEDS: LACTULOSE 20 GM/30 ML UDCUP PO SCH (11:51)
[2023-01-13] MEDS: FLUCONAZOLE 200 MG/NS 100 ML 100 ML IV SCH (14:25)
[2023-01-13] MEDS: FUROSEMIDE 40MG VIAL IV SCH (18:40)
[2023-01-13] MEDS: ATORVASTATIN 20 MG TABLET PO SCH (20:36)
[2023-01-14] VITALS (22 sets, daily range): BP systolic 115–173; BP diastolic 43–80
[2023-01-14] MEDS: IPRATROPIUM/ALBUTEROL SULFATE 3 ML SOLUTION IH SCH ×5 (00:18→23:27)
[2023-01-14] MEDS: ARTIFICIAL TEARS 3.5 GM OINTMENT OU SCH ×2 (00:21→18:03)
[2023-01-14] MEDS: CHLORHEXIDINE GLUCONATE 473 ML MOUTHWASH MM SCH ×4 (00:22→17:55)
[2023-01-14] MEDS: FUROSEMIDE 40MG VIAL IV SCH ×3 (01:17→15:12)
[2023-01-14] MEDS: LINEZOLID 600 MG/ISO-OSM 300 ML IV SCH ×2 (05:03→15:12)
[2023-01-14 05:07] LABS: BASOPHILS % (AUTO) 0.5 % (0.0-5.0); EOSINOPHILS % (AUTO) 4.1 % (0.0-8.0); HEMATOCRIT 34.5 % (36-48); LYMPHOCYTES % (AUTO) 16.6 % (21.0-51.0); MEAN CORPUSCULAR HEMOGLOBIN 28.2 pg (27.0-33.0); MEAN CORPUSCULAR HGB CONC 30.7 g/dL (32.0-36.0); MEAN CORPUSCULAR VOLUME 91.8 fL (79-99); MONOCYTES % (AUTO) 7.7 % (3.0-13.0); NEUTROPHILS % (AUTO) 70.7 % (40.0-77.0); PLATELET COUNT (AUTO) 197 K/uL (130-400); RED BLOOD CELL COUNT(AUTO) 3.76 MIL/uL (4.00-5.50); RED CELL DISTRIBUTION WIDTH 14.2 % (11.0-15.5); WHITE BLOOD COUNT (AUTO) 9.4 K/uL (4.8-10.8)
[2023-01-14 05:24] LABS: CREATININE 1.8 mg/dL (0.5-1.5); POTASSIUM 3.3 mmol/L (3.5-5.1)
[2023-01-14 05:55] LABS: B-TYPE NATRIURETIC PEPTIDE 145 pg/mL (0-100)
[2023-01-14] MEDS: INSULIN HUMULIN R 100 UNIT/ML 3ML SQ SCH ×4 (06:00→17:55)
[2023-01-14] MEDS: POTASSIUM CHLORIDE 20MEQ/100ML 100 ML IV PRN (06:39)
[2023-01-14] MEDS: CHLORDIAZEPOXIDE HCL 25 MG CAP PO SCH ×3 (09:00→20:42)
[2023-01-14] MEDS: THIAMINE HCL 100 MG TABLET PO SCH (09:01)
[2023-01-14] MEDS: MULTIVITAMIN WITH MINERALS TABLET PO SCH (09:01)
[2023-01-14] MEDS: AMLODIPINE 5 MG TAB PO SCH (09:01)
[2023-01-14] MEDS: ASPIRIN 81MG CHEW TAB PO SCH (09:01)
[2023-01-14] MEDS: METOPROLOL TARTRATE 25 MG TAB PO SCH ×2 (09:01→20:42)
[2023-01-14] MEDS: Vitamin B Complex/Vit C/Folic Acid PO SCH (09:01)
[2023-01-14] MEDS: FAMOTIDINE 20MG VIAL IV SCH (09:02)
[2023-01-14] MEDS: ROPINIROLE HCL 1 MG TABLET PO SCH ×3 (09:02→20:42)
[2023-01-14] MEDS: ENOXAPARIN SODIUM 30 MG/0.3 ML SQ SCH (09:03)
[2023-01-14] MEDS: NYSTATIN 15 GM POWDER TP SCH ×3 (09:03→20:42)
[2023-01-14] MEDS: POTASSIUM CHLORIDE 10% ELIXIR 20 MEQ/15 ML UDCUP PO PRN (09:12)
[2023-01-14] MEDS: DEXAMETHASONE SOD PHOSPHATE 4 MG/ML 1ML VIAL IVP SCH (10:18)
[2023-01-14] MEDS: LACTULOSE 20 GM/30 ML UDCUP PO SCH (13:00)
[2023-01-14] MEDS: FLUCONAZOLE 200 MG/NS 100 ML 100 ML IV SCH (15:12)
[2023-01-14] MEDS: ATORVASTATIN 20 MG TABLET PO SCH (20:42)
[2023-01-15] VITALS (25 sets, daily range): BP systolic 126–177; BP diastolic 53–89
[2023-01-15] MEDS: FUROSEMIDE 40MG VIAL IV SCH ×3 (00:14→15:39)
[2023-01-15] MEDS: CHLORHEXIDINE GLUCONATE 473 ML MOUTHWASH MM SCH ×4 (00:15→17:04)
[2023-01-15] MEDS: LINEZOLID 600 MG/ISO-OSM 300 ML IV SCH ×2 (03:28→15:39)
[2023-01-15 04:28] LABS: BASOPHILS % (AUTO) 0.3 % (0.0-5.0); HEMATOCRIT 36.9 % (36-48); LYMPHOCYTES % (AUTO) 12.2 % (21.0-51.0); MEAN CORPUSCULAR HEMOGLOBIN 28.1 pg (27.0-33.0); MEAN CORPUSCULAR HGB CONC 31.7 g/dL (32.0-36.0); MEAN CORPUSCULAR VOLUME 88.7 fL (79-99); NEUTROPHILS % (AUTO) 83.7 % (40.0-77.0); PLATELET COUNT (AUTO) 291 K/uL (130-400); RED BLOOD CELL COUNT(AUTO) 4.16 MIL/uL (4.00-5.50); RED CELL DISTRIBUTION WIDTH 13.5 % (11.0-15.5); WHITE BLOOD COUNT (AUTO) 11.6 K/uL (4.8-10.8)
[2023-01-15 04:33] LABS: CREATININE 1.7 mg/dL (0.5-1.5); POTASSIUM 3.9 mmol/L (3.5-5.1)
[2023-01-15] MEDS: INSULIN HUMULIN R 100 UNIT/ML 3ML SQ SCH ×5 (06:00→23:44)
[2023-01-15] MEDS: IPRATROPIUM/ALBUTEROL SULFATE 3 ML SOLUTION IH SCH ×4 (06:36→23:44)
[2023-01-15] MEDS: Vitamin B Complex/Vit C/Folic Acid PO SCH (08:53)
[2023-01-15] MEDS: THIAMINE HCL 100 MG TABLET PO SCH (08:53)
[2023-01-15] MEDS: MULTIVITAMIN WITH MINERALS TABLET PO SCH (08:53)
[2023-01-15] MEDS: FAMOTIDINE 20MG VIAL IV SCH (08:54)
[2023-01-15] MEDS: ROPINIROLE HCL 1 MG TABLET PO SCH ×3 (08:54→20:18)
[2023-01-15] MEDS: CHLORDIAZEPOXIDE HCL 25 MG CAP PO SCH ×3 (08:54→20:17)
[2023-01-15] MEDS: ASPIRIN 81MG CHEW TAB PO SCH (08:54)
[2023-01-15] MEDS: METOPROLOL TARTRATE 25 MG TAB PO SCH ×2 (08:54→20:16)
[2023-01-15] MEDS: AMLODIPINE 5 MG TAB PO SCH (08:55)
[2023-01-15] MEDS: DEXAMETHASONE SOD PHOSPHATE 4 MG/ML 1ML VIAL IVP SCH (08:55)
[2023-01-15] MEDS: NYSTATIN 15 GM POWDER TP SCH ×3 (08:56→20:17)
[2023-01-15] MEDS: ENOXAPARIN SODIUM 30 MG/0.3 ML SQ SCH ×2 (08:56→16:19)
[2023-01-15] MEDS: LACTULOSE 20 GM/30 ML UDCUP PO SCH (11:49)
[2023-01-15] MEDS: FLUCONAZOLE 200 MG/NS 100 ML 100 ML IV SCH (13:24)
[2023-01-15] MEDS: ATORVASTATIN 20 MG TABLET PO SCH (20:16)
[2023-01-15] MEDS: ARTIFICIAL TEARS 3.5 GM OINTMENT OU SCH (20:17)
[2023-01-16] VITALS (26 sets, daily range): BP systolic 111–157; BP diastolic 50–72
[2023-01-16] MEDS: FUROSEMIDE 40MG VIAL IV SCH ×3 (00:04→16:43)
[2023-01-16] MEDS: CHLORHEXIDINE GLUCONATE 473 ML MOUTHWASH MM SCH ×4 (00:04→17:17)
[2023-01-16 03:35] LABS: ABG BASE EXCESS 8.7 mmol/L (-2.0-3.0); ABG HCO3 32.7 mmol/L (21.0-28.0); ABG OXYGEN SATURATION 99.1 % (95.0-99.0); ABG PCO2 42 mmHg (32-45)
[2023-01-16 03:43] LABS: BASOPHILS % (AUTO) 0.1 % (0.0-5.0); HEMATOCRIT 38.3 % (36-48); LYMPHOCYTES % (AUTO) 11.3 % (21.0-51.0); MEAN CORPUSCULAR HEMOGLOBIN 28.3 pg (27.0-33.0); MEAN CORPUSCULAR HGB CONC 31.9 g/dL (32.0-36.0); MEAN CORPUSCULAR VOLUME 88.9 fL (79-99); MONOCYTES % (AUTO) 5.6 % (3.0-13.0); NEUTROPHILS % (AUTO) 82.5 % (40.0-77.0); PLATELET COUNT (AUTO) 372 K/uL (130-400); RED BLOOD CELL COUNT(AUTO) 4.31 MIL/uL (4.00-5.50); RED CELL DISTRIBUTION WIDTH 13.4 % (11.0-15.5); WHITE BLOOD COUNT (AUTO) 13.2 K/uL (4.8-10.8)
[2023-01-16 03:51] LABS: POTASSIUM 3.5 mmol/L (3.5-5.1)
[2023-01-16 03:58] LABS: INR 1.02 (0.85-1.15); PROTHROMBIN TIME 11.1 SEC (9.6-11.6)
[2023-01-16] MEDS: LINEZOLID 600 MG/ISO-OSM 300 ML IV SCH ×2 (05:03→16:10)
[2023-01-16] MEDS: POTASSIUM CHLORIDE 20MEQ/100ML 100 ML IV PRN ×2 (05:30→14:04)
[2023-01-16] MEDS: INSULIN HUMULIN R 100 UNIT/ML 3ML SQ SCH ×3 (05:30→17:16)
[2023-01-16] MEDS: IPRATROPIUM/ALBUTEROL SULFATE 3 ML SOLUTION IH SCH ×4 (06:40→23:22)
[2023-01-16] MEDS: MULTIVITAMIN WITH MINERALS TABLET PO SCH (08:00)
[2023-01-16] MEDS: FAMOTIDINE 20MG VIAL IV SCH (08:34)
[2023-01-16] MEDS: DEXAMETHASONE SOD PHOSPHATE 4 MG/ML 1ML VIAL IVP SCH (08:34)
[2023-01-16] MEDS: CHLORDIAZEPOXIDE HCL 25 MG CAP PO SCH ×3 (08:35→20:08)
[2023-01-16] MEDS: METOPROLOL TARTRATE 25 MG TAB PO SCH ×2 (08:35→20:08)
[2023-01-16] MEDS: AMLODIPINE 5 MG TAB PO SCH (08:35)
[2023-01-16] MEDS: NYSTATIN 15 GM POWDER TP SCH ×3 (08:35→20:08)
[2023-01-16] MEDS: ASPIRIN 81MG CHEW TAB PO SCH (09:00)
[2023-01-16] MEDS: Vitamin B Complex/Vit C/Folic Acid PO SCH (09:00)
[2023-01-16] MEDS: THIAMINE HCL 100 MG TABLET PO SCH (09:00)
[2023-01-16] MEDS: ROPINIROLE HCL 1 MG TABLET PO SCH ×3 (09:00→20:08)
[2023-01-16] MEDS: LACTULOSE 20 GM/30 ML UDCUP PO SCH (12:27)
[2023-01-16] MEDS: FLUCONAZOLE 200 MG/NS 100 ML 100 ML IV SCH (15:10)
[2023-01-16] MEDS: ATORVASTATIN 20 MG TABLET PO SCH (20:08)
[2023-01-16] MEDS: ARTIFICIAL TEARS 3.5 GM OINTMENT OU SCH (20:09)
[2023-01-17] VITALS (24 sets, daily range): BP systolic 116–165; BP diastolic 42–83
[2023-01-17] MEDS: FUROSEMIDE 40MG VIAL IV SCH ×3 (00:52→15:17)
[2023-01-17] MEDS: CHLORHEXIDINE GLUCONATE 473 ML MOUTHWASH MM SCH ×4 (00:53→17:13)
[2023-01-17] MEDS: LINEZOLID 600 MG/ISO-OSM 300 ML IV SCH ×2 (04:58→15:15)
[2023-01-17 05:40] LABS: HEMATOCRIT 39.9 % (36-48); MEAN CORPUSCULAR HEMOGLOBIN 28.4 pg (27.0-33.0); MEAN CORPUSCULAR HGB CONC 31.8 g/dL (32.0-36.0); MEAN CORPUSCULAR VOLUME 89.3 fL (79-99); RED BLOOD CELL COUNT(AUTO) 4.47 MIL/uL (4.00-5.50); RED CELL DISTRIBUTION WIDTH 13.2 % (11.0-15.5)
[2023-01-17 05:50] LABS: INR 1.05 (0.85-1.15); PROTHROMBIN TIME 11.4 SEC (9.6-11.6)
[2023-01-17 05:52] LABS: PARTIAL THROMBOPLASTIN TIME 23.1 SEC (26.3-35.5)
[2023-01-17 05:54] LABS: ALBUMIN 3.3 g/dL (3.5-5.0); POTASSIUM 3.6 mmol/L (3.5-5.1); TOTAL PROTEIN, SERUM 7.8 g/dL (6.0-8.3)
[2023-01-17 05:59] LABS: CREATININE 2.1 mg/dL (0.5-1.5)
[2023-01-17] MEDS: INSULIN HUMULIN R 100 UNIT/ML 3ML SQ SCH ×4 (06:00→17:12)
[2023-01-17] MEDS: IPRATROPIUM/ALBUTEROL SULFATE 3 ML SOLUTION IH SCH ×2 (06:38→11:12)
[2023-01-17] MEDS: AMLODIPINE 5 MG TAB PO SCH (08:02)
[2023-01-17] MEDS: ROPINIROLE HCL 1 MG TABLET PO SCH ×3 (08:02→20:00)
[2023-01-17] MEDS: FAMOTIDINE 20MG VIAL IV SCH (08:03)
[2023-01-17] MEDS: NYSTATIN 15 GM POWDER TP SCH ×3 (08:03→20:02)
[2023-01-17] MEDS: ENOXAPARIN SODIUM 30 MG/0.3 ML SQ SCH ×2 (08:03→15:15)
[2023-01-17] MEDS: METOPROLOL TARTRATE 25 MG TAB PO SCH ×2 (08:03→20:00)
[2023-01-17] MEDS: ASPIRIN 81MG CHEW TAB PO SCH (08:04)
[2023-01-17] MEDS: DEXAMETHASONE SOD PHOSPHATE 4 MG/ML 1ML VIAL IV SCH (08:22)
[2023-01-17] MEDS: CHLORDIAZEPOXIDE HCL 25 MG CAP PO SCH ×2 (08:22→20:00)
[2023-01-17] MEDS: LACTULOSE 20 GM/30 ML UDCUP PO SCH (13:00)
[2023-01-17] MEDS: FLUCONAZOLE 200 MG/NS 100 ML 100 ML IV SCH (14:05)
[2023-01-17] MEDS: Vitamin B Complex/Vit C/Folic Acid PO SCH (15:11)
[2023-01-17] MEDS: THIAMINE HCL 100 MG TABLET PO SCH (15:11)
[2023-01-17] MEDS: MULTIVITAMIN WITH MINERALS TABLET PO SCH (15:11)
[2023-01-17] MEDS: ATORVASTATIN 20 MG TABLET PO SCH (20:00)
[2023-01-17] MEDS: ARTIFICIAL TEARS 3.5 GM OINTMENT OU SCH (20:03)
[2023-01-18] VITALS (17 sets, daily range): BP systolic 115–175; BP diastolic 60–101
[2023-01-18] MEDS: CHLORHEXIDINE GLUCONATE 473 ML MOUTHWASH MM SCH ×4 (01:05→21:09)
[2023-01-18] MEDS: FUROSEMIDE 40MG VIAL IV SCH ×3 (01:05→17:48)
[2023-01-18] MEDS: IPRATROPIUM/ALBUTEROL SULFATE 3 ML SOLUTION IH SCH ×5 (02:33→19:27)
[2023-01-18] MEDS: INSULIN HUMULIN R 100 UNIT/ML 3ML SQ SCH ×4 (06:00→17:46)
[2023-01-18] MEDS: LINEZOLID 600 MG/ISO-OSM 300 ML IV SCH ×2 (06:20→17:48)
[2023-01-18 07:59] LABS: HEMATOCRIT 42.7 % (36-48); MEAN CORPUSCULAR HEMOGLOBIN 28.1 pg (27.0-33.0); MEAN CORPUSCULAR HGB CONC 31.6 g/dL (32.0-36.0); PLATELET COUNT (AUTO) 397 K/uL (130-400); RED CELL DISTRIBUTION WIDTH 13.3 % (11.0-15.5); WHITE BLOOD COUNT (AUTO) 13.3 K/uL (4.8-10.8)
[2023-01-18] MEDS: MULTIVITAMIN WITH MINERALS TABLET PO SCH (08:00)
[2023-01-18 08:10] LABS: INR 1.05 (0.85-1.15); PROTHROMBIN TIME 11.4 SEC (9.6-11.6)
[2023-01-18 08:11] LABS: PARTIAL THROMBOPLASTIN TIME 25.4 SEC (26.3-35.5)
[2023-01-18] MEDS: ASPIRIN 81MG CHEW TAB PO SCH (08:11)
[2023-01-18] MEDS: DEXAMETHASONE SOD PHOSPHATE 4 MG/ML 1ML VIAL IV SCH (08:14)
[2023-01-18] MEDS: Vitamin B Complex/Vit C/Folic Acid PO SCH (08:23)
[2023-01-18] MEDS: THIAMINE HCL 100 MG TABLET PO SCH (08:24)
[2023-01-18 08:26] LABS: ALBUMIN 3.3 g/dL (3.5-5.0); POTASSIUM 3.4 mmol/L (3.5-5.1); TOTAL PROTEIN, SERUM 7.8 g/dL (6.0-8.3)
[2023-01-18] MEDS: ROPINIROLE HCL 1 MG TABLET PO SCH ×3 (08:39→21:01)
[2023-01-18] MEDS: AMLODIPINE 5 MG TAB PO SCH (08:39)
[2023-01-18] MEDS: CHLORDIAZEPOXIDE HCL 25 MG CAP PO SCH ×2 (08:39→21:01)
[2023-01-18] MEDS: METOPROLOL TARTRATE 25 MG TAB PO SCH ×2 (08:43→21:00)
[2023-01-18] MEDS: FAMOTIDINE 20MG VIAL IV SCH (08:43)
[2023-01-18] MEDS: NYSTATIN 15 GM POWDER TP SCH ×3 (08:44→21:09)
[2023-01-18 09:02] LABS: BASOPHILS % (MANUAL) 1 % (0-2); LYMPHOCYTES % (MANUAL) 25 % (22-44); MAN.DIFF COMMENT-IMPRESSION MANUAL DIFFERENTIAL; MONOCYTES % (MANUAL) 3 % (2-9); PLATELET MORPHOLOGY COMMENT ADEQUATE; SEGMENTED NEUTROPHILS % 71 % (40-70)
[2023-01-18] MEDS ORDERED: ROCURONIUM 10MG/1ML SYR 10 MG/ML ML ONE (10:56)
[2023-01-18] MEDS ORDERED: MIDAZOLAM HCL 1 MG/ML 2ML VIAL ONE (10:56)
[2023-01-18] MEDS ORDERED: FENTANYL CITRATE PF 50 MCG/1 ML 2ML VIAL ONE (10:56)
[2023-01-18] MEDS: LACTULOSE 20 GM/30 ML UDCUP PO SCH (13:24)
[2023-01-18] MEDS: FLUCONAZOLE 200 MG/NS 100 ML 100 ML IV SCH (14:04)
[2023-01-18] MEDS: POTASSIUM CHLORIDE 10% ELIXIR 20 MEQ/15 ML UDCUP PO PRN (17:58)
[2023-01-18] MEDS: ATORVASTATIN 20 MG TABLET PO SCH (21:01)
[2023-01-18] MEDS: ARTIFICIAL TEARS 3.5 GM OINTMENT OU SCH (21:09)
[2023-01-19] VITALS (22 sets, daily range): BP systolic 109–166; BP diastolic 50–97
[2023-01-19] MEDS: IPRATROPIUM/ALBUTEROL SULFATE 3 ML SOLUTION IH SCH ×5 (00:17→23:12)
[2023-01-19] MEDS: CHLORHEXIDINE GLUCONATE 473 ML MOUTHWASH MM SCH ×5 (01:30→23:55)
[2023-01-19] MEDS: FUROSEMIDE 40MG VIAL IV SCH ×4 (01:33→23:55)
[2023-01-19] MEDS: LINEZOLID 600 MG/ISO-OSM 300 ML IV SCH ×2 (04:46→15:11)
[2023-01-19] MEDS: INSULIN HUMULIN R 100 UNIT/ML 3ML SQ SCH ×4 (06:00→18:17)
[2023-01-19 06:25] LABS: HEMATOCRIT 44.8 % (36-48); MEAN CORPUSCULAR HEMOGLOBIN 28.4 pg (27.0-33.0); MEAN CORPUSCULAR HGB CONC 31.9 g/dL (32.0-36.0); MEAN CORPUSCULAR VOLUME 89.1 fL (79-99); PLATELET COUNT (AUTO) 490 K/uL (130-400); RED BLOOD CELL COUNT(AUTO) 5.03 MIL/uL (4.00-5.50); RED CELL DISTRIBUTION WIDTH 13.4 % (11.0-15.5); WHITE BLOOD COUNT (AUTO) 14.7 K/uL (4.8-10.8)
[2023-01-19 06:37] LABS: INR 1.05 (0.85-1.15); PROTHROMBIN TIME 11.4 SEC (9.6-11.6)
[2023-01-19 06:38] LABS: PARTIAL THROMBOPLASTIN TIME 25.6 SEC (26.3-35.5)
[2023-01-19 06:39] LABS: ALBUMIN 3.4 g/dL (3.5-5.0); POTASSIUM 3.5 mmol/L (3.5-5.1); TOTAL PROTEIN, SERUM 8.2 g/dL (6.0-8.3)
[2023-01-19 07:33] LABS: LYMPHOCYTES % (MANUAL) 13 % (22-44); MAN.DIFF COMMENT-IMPRESSION MANUAL DIFFERENTIAL; MONOCYTES % (MANUAL) 8 % (2-9); SEGMENTED NEUTROPHILS % 79 % (40-70)
[2023-01-19 07:34] LABS: PLATELET MORPHOLOGY COMMENT ADEQUATE
[2023-01-19] MEDS: DEXAMETHASONE SOD PHOSPHATE 4 MG/ML 1ML VIAL IV SCH (07:39)
[2023-01-19] MEDS: CHLORDIAZEPOXIDE HCL 25 MG CAP PO SCH ×2 (07:58→21:02)
[2023-01-19] MEDS: FAMOTIDINE 20MG VIAL IV SCH (07:58)
[2023-01-19] MEDS: AMLODIPINE 5 MG TAB PO SCH (07:58)
[2023-01-19] MEDS: MULTIVITAMIN WITH MINERALS TABLET PO SCH (08:00)
[2023-01-19] MEDS: ROPINIROLE HCL 1 MG TABLET PO SCH ×3 (08:03→21:02)
[2023-01-19] MEDS: THIAMINE HCL 100 MG TABLET PO SCH (08:04)
[2023-01-19] MEDS: Vitamin B Complex/Vit C/Folic Acid PO SCH (08:04)
[2023-01-19] MEDS: ASPIRIN 81MG CHEW TAB PO SCH (08:04)
[2023-01-19] MEDS: NYSTATIN 15 GM POWDER TP SCH ×3 (08:12→21:02)
[2023-01-19] MEDS: ENOXAPARIN SODIUM 30 MG/0.3 ML SQ SCH (08:39)
[2023-01-19] MEDS ORDERED: ROCURONIUM 10MG/1ML SYR 10 MG/ML ML ONE (09:13)
[2023-01-19] MEDS ORDERED: PROPOFOL 10 MG/ML 20ML VIAL IV ONE (09:13)
[2023-01-19] MEDS ORDERED: EPHEDRINE SULFATE 50 MG/ML AMPULE ONE (09:32)
[2023-01-19] MEDS ORDERED: FENTANYL CITRATE PF 50 MCG/1 ML 2ML VIAL ONE (09:56)
[2023-01-19] MEDS: METOPROLOL TARTRATE 25 MG TAB PO SCH ×2 (12:22→21:01)
[2023-01-19] MEDS: LACTULOSE 20 GM/30 ML UDCUP PO SCH (13:50)
[2023-01-19] MEDS: FLUCONAZOLE 200 MG/NS 100 ML 100 ML IV SCH (13:50)
[2023-01-19] MEDS: ATORVASTATIN 20 MG TABLET PO SCH (21:02)
[2023-01-19] MEDS: ARTIFICIAL TEARS 3.5 GM OINTMENT OU SCH (21:02)
[2023-01-20] VITALS (22 sets, daily range): BP systolic 113–157; BP diastolic 46–73
[2023-01-20] MEDS: LINEZOLID 600 MG/ISO-OSM 300 ML IV SCH ×2 (04:09→15:24)
[2023-01-20] MEDS: CHLORHEXIDINE GLUCONATE 473 ML MOUTHWASH MM SCH ×3 (05:28→17:13)
[2023-01-20 05:43] LABS: BASOPHILS % (AUTO) 0.1 % (0.0-5.0); EOSINOPHILS % (AUTO) 0.1 % (0.0-8.0); HEMATOCRIT 39.6 % (36-48); LYMPHOCYTES % (AUTO) 14.5 % (21.0-51.0); MEAN CORPUSCULAR HEMOGLOBIN 28.6 pg (27.0-33.0); MEAN CORPUSCULAR HGB CONC 31.3 g/dL (32.0-36.0); MEAN CORPUSCULAR VOLUME 91.2 fL (79-99); MONOCYTES % (AUTO) 8.3 % (3.0-13.0); NEUTROPHILS % (AUTO) 76.5 % (40.0-77.0); PLATELET COUNT (AUTO) 464 K/uL (130-400); RED BLOOD CELL COUNT(AUTO) 4.34 MIL/uL (4.00-5.50); RED CELL DISTRIBUTION WIDTH 13.7 % (11.0-15.5); WHITE BLOOD COUNT (AUTO) 17.2 K/uL (4.8-10.8)
[2023-01-20 05:51] LABS: POTASSIUM 3.6 mmol/L (3.5-5.1)
[2023-01-20] MEDS: INSULIN HUMULIN R 100 UNIT/ML 3ML SQ SCH ×4 (05:55→17:27)
[2023-01-20] MEDS: IPRATROPIUM/ALBUTEROL SULFATE 3 ML SOLUTION IH SCH ×4 (06:44→23:00)
[2023-01-20] MEDS: DEXAMETHASONE SOD PHOSPHATE 4 MG/ML 1ML VIAL IV SCH (08:38)
[2023-01-20] MEDS: MULTIVITAMIN WITH MINERALS TABLET PO SCH (08:39)
[2023-01-20] MEDS: ROPINIROLE HCL 1 MG TABLET PO SCH ×3 (08:39→21:00)
[2023-01-20] MEDS: METOPROLOL TARTRATE 25 MG TAB PO SCH ×2 (08:39→21:00)
[2023-01-20] MEDS: FAMOTIDINE 20MG VIAL IV SCH (08:40)
[2023-01-20] MEDS: ASPIRIN 81MG CHEW TAB PO SCH (08:40)
[2023-01-20] MEDS: ENOXAPARIN SODIUM 30 MG/0.3 ML SQ SCH (08:40)
[2023-01-20] MEDS: NYSTATIN 15 GM POWDER TP SCH ×3 (08:41→21:00)
[2023-01-20] MEDS: CHLORDIAZEPOXIDE HCL 25 MG CAP PO SCH ×2 (08:41→21:00)
[2023-01-20] MEDS: Vitamin B Complex/Vit C/Folic Acid PO SCH (08:41)
[2023-01-20] MEDS: AMLODIPINE 5 MG TAB PO SCH (08:41)
[2023-01-20] MEDS: FUROSEMIDE 40MG VIAL IV SCH (08:41)
[2023-01-20] MEDS: THIAMINE HCL 100 MG TABLET PO SCH (08:45)
[2023-01-20] MEDS ORDERED: LACTATED RINGERS 1000ML IV SCH (09:00)
[2023-01-20] MEDS: LACTULOSE 20 GM/30 ML UDCUP PO SCH (13:20)
[2023-01-20] MEDS: FLUCONAZOLE 200 MG/NS 100 ML 100 ML IV SCH (14:03)
[2023-01-20] MEDS: ATORVASTATIN 20 MG TABLET PO SCH (21:00)
[2023-01-20] MEDS: ARTIFICIAL TEARS 3.5 GM OINTMENT OU SCH (21:01)
[2023-01-21] VITALS (20 sets, daily range): BP systolic 123–169; BP diastolic 47–106
[2023-01-21] MEDS: CHLORHEXIDINE GLUCONATE 473 ML MOUTHWASH MM SCH ×5 (00:06→23:15)
[2023-01-21] MEDS: LINEZOLID 600 MG/ISO-OSM 300 ML IV SCH ×2 (03:16→15:36)
[2023-01-21] MEDS: POTASSIUM CHLORIDE 10MEQ/100ML 100 ML IV PRN (03:57)
[2023-01-21] MEDS: INSULIN HUMULIN R 100 UNIT/ML 3ML SQ SCH ×5 (06:00→23:14)
[2023-01-21] MEDS: IPRATROPIUM/ALBUTEROL SULFATE 3 ML SOLUTION IH SCH ×4 (06:10→23:10)
[2023-01-21 07:10] LABS: BASOPHILS % (AUTO) 0.1 % (0.0-5.0); EOSINOPHILS % (AUTO) 0.2 % (0.0-8.0); HEMATOCRIT 41.2 % (36-48); LYMPHOCYTES % (AUTO) 13.1 % (21.0-51.0); MEAN CORPUSCULAR HEMOGLOBIN 28.8 pg (27.0-33.0); MEAN CORPUSCULAR HGB CONC 31.1 g/dL (32.0-36.0); MEAN CORPUSCULAR VOLUME 92.8 fL (79-99); PLATELET COUNT (AUTO) 414 K/uL (130-400); RED BLOOD CELL COUNT(AUTO) 4.44 MIL/uL (4.00-5.50); RED CELL DISTRIBUTION WIDTH 13.4 % (11.0-15.5); WHITE BLOOD COUNT (AUTO) 17.4 K/uL (4.8-10.8)
[2023-01-21 07:24] LABS: CREATININE 1.6 mg/dL (0.5-1.5)
[2023-01-21] MEDS: CHLORDIAZEPOXIDE HCL 25 MG CAP PO SCH ×2 (08:05→20:42)
[2023-01-21] MEDS: AMLODIPINE 5 MG TAB PO SCH (08:05)
[2023-01-21] MEDS: MULTIVITAMIN WITH MINERALS TABLET PO SCH (08:05)
[2023-01-21] MEDS: DEXAMETHASONE SOD PHOSPHATE 4 MG/ML 1ML VIAL IV SCH (08:06)
[2023-01-21] MEDS: THIAMINE HCL 100 MG TABLET PO SCH (08:06)
[2023-01-21] MEDS: ASPIRIN 81MG CHEW TAB PO SCH (08:06)
[2023-01-21] MEDS: METOPROLOL TARTRATE 25 MG TAB PO SCH ×2 (08:06→20:42)
[2023-01-21] MEDS: ROPINIROLE HCL 1 MG TABLET PO SCH ×3 (08:06→20:42)
[2023-01-21] MEDS: FAMOTIDINE 20MG VIAL IV SCH (08:07)
[2023-01-21] MEDS: ENOXAPARIN SODIUM 30 MG/0.3 ML SQ SCH (08:07)
[2023-01-21] MEDS: NYSTATIN 15 GM POWDER TP SCH ×3 (08:08→20:49)
[2023-01-21] MEDS: Vitamin B Complex/Vit C/Folic Acid PO SCH (10:06)
[2023-01-21] MEDS: LACTULOSE 20 GM/30 ML UDCUP PO SCH (13:48)
[2023-01-21] MEDS: FLUCONAZOLE 200 MG/NS 100 ML 100 ML IV SCH (14:18)
[2023-01-21] MEDS: ATORVASTATIN 20 MG TABLET PO SCH (20:42)
[2023-01-21] MEDS: ARTIFICIAL TEARS 3.5 GM OINTMENT OU SCH (20:44)
[2023-01-22] VITALS (24 sets, daily range): BP systolic 109–177; BP diastolic 47–112
[2023-01-22] MEDS: LINEZOLID 600 MG/ISO-OSM 300 ML IV SCH ×2 (03:02→17:30)
[2023-01-22 04:59] LABS: HEMATOCRIT 40.6 % (36-48); MEAN CORPUSCULAR HEMOGLOBIN 28.4 pg (27.0-33.0); MEAN CORPUSCULAR HGB CONC 30.5 g/dL (32.0-36.0); MEAN CORPUSCULAR VOLUME 93.1 fL (79-99); RED BLOOD CELL COUNT(AUTO) 4.36 MIL/uL (4.00-5.50); RED CELL DISTRIBUTION WIDTH 13.4 % (11.0-15.5); WHITE BLOOD COUNT (AUTO) 15.1 K/uL (4.8-10.8)
[2023-01-22 05:19] LABS: CREATININE 1.4 mg/dL (0.5-1.5); MAGNESIUM 2.6 mg/dL (1.80-2.40); POTASSIUM 3.9 mmol/L (3.5-5.1)
[2023-01-22] MEDS: INSULIN HUMULIN R 100 UNIT/ML 3ML SQ SCH ×3 (06:00→17:36)
[2023-01-22] MEDS: CHLORHEXIDINE GLUCONATE 473 ML MOUTHWASH MM SCH ×3 (06:12→17:36)
[2023-01-22] MEDS: IPRATROPIUM/ALBUTEROL SULFATE 3 ML SOLUTION IH SCH ×4 (06:31→23:16)
[2023-01-22] MEDS: THIAMINE HCL 100 MG TABLET PO SCH (09:41)
[2023-01-22] MEDS: CHLORDIAZEPOXIDE HCL 25 MG CAP PO SCH ×2 (09:41→20:22)
[2023-01-22] MEDS: Vitamin B Complex/Vit C/Folic Acid PO SCH (09:41)
[2023-01-22] MEDS: AMLODIPINE 5 MG TAB PO SCH (09:41)
[2023-01-22] MEDS: ROPINIROLE HCL 1 MG TABLET PO SCH ×3 (09:41→20:22)
[2023-01-22] MEDS: ASPIRIN 81MG CHEW TAB PO SCH (09:41)
[2023-01-22] MEDS: NYSTATIN 15 GM POWDER TP SCH ×2 (09:43→13:18)
[2023-01-22] MEDS: ENOXAPARIN SODIUM 30 MG/0.3 ML SQ SCH (09:43)
[2023-01-22] MEDS: FAMOTIDINE 20MG VIAL IV SCH (09:43)
[2023-01-22] MEDS: MULTIVITAMIN WITH MINERALS TABLET PO SCH (09:46)
[2023-01-22] MEDS: METOPROLOL TARTRATE 25 MG TAB PO SCH ×2 (09:48→20:22)
[2023-01-22] MEDS: LACTULOSE 20 GM/30 ML UDCUP PO SCH (13:17)
[2023-01-22] MEDS: ALPRAZOLAM 0.5 MG TABLET PO PRN (14:00)
[2023-01-22] MEDS: FLUCONAZOLE 200 MG/NS 100 ML 100 ML IV SCH (14:10)
[2023-01-22] MEDS: ATORVASTATIN 20 MG TABLET PO SCH (20:22)
[2023-01-23] VITALS (23 sets, daily range): BP systolic 104–159; BP diastolic 41–86
[2023-01-23] MEDS: ARTIFICIAL TEARS 3.5 GM OINTMENT OU SCH ×2 (00:19→20:22)
[2023-01-23] MEDS: CHLORHEXIDINE GLUCONATE 473 ML MOUTHWASH MM SCH ×5 (00:19→23:33)
[2023-01-23] MEDS: NYSTATIN 15 GM POWDER TP SCH ×4 (00:20→20:21)
[2023-01-23] MEDS: LINEZOLID 600 MG/ISO-OSM 300 ML IV SCH ×2 (04:12→15:58)
[2023-01-23] MEDS: INSULIN HUMULIN R 100 UNIT/ML 3ML SQ SCH ×5 (06:00→23:32)
[2023-01-23] MEDS: IPRATROPIUM/ALBUTEROL SULFATE 3 ML SOLUTION IH SCH ×3 (06:47→18:38)
[2023-01-23] MEDS: AMLODIPINE 5 MG TAB PO SCH (08:14)
[2023-01-23] MEDS: CHLORDIAZEPOXIDE HCL 25 MG CAP PO SCH ×2 (08:14→20:21)
[2023-01-23] MEDS: ASPIRIN 81MG CHEW TAB PO SCH (08:14)
[2023-01-23] MEDS: METOPROLOL TARTRATE 25 MG TAB PO SCH ×2 (08:14→20:21)
[2023-01-23] MEDS: THIAMINE HCL 100 MG TABLET PO SCH (08:14)
[2023-01-23] MEDS: MULTIVITAMIN WITH MINERALS TABLET PO SCH (08:14)
[2023-01-23] MEDS: ROPINIROLE HCL 1 MG TABLET PO SCH ×3 (08:14→20:21)
[2023-01-23] MEDS: Vitamin B Complex/Vit C/Folic Acid PO SCH (08:14)
[2023-01-23] MEDS: FAMOTIDINE 20MG VIAL IV SCH (08:14)
[2023-01-23] MEDS: ENOXAPARIN SODIUM 30 MG/0.3 ML SQ SCH (08:15)
[2023-01-23] MEDS: LACTULOSE 20 GM/30 ML UDCUP PO SCH (13:10)
[2023-01-23] MEDS: FLUCONAZOLE 200 MG/NS 100 ML 100 ML IV SCH (14:23)
[2023-01-23] MEDS: ATORVASTATIN 20 MG TABLET PO SCH (20:21)
[2023-01-24] VITALS (14 sets, daily range): BP systolic 109–165; BP diastolic 32–85
[2023-01-24 03:43] LABS: ABG BASE EXCESS 0.4 mmol/L (-2.0-3.0); ABG HCO3 24.6 mmol/L (21.0-28.0); ABG PCO2 38 mmHg (32-45)
[2023-01-24] MEDS: LINEZOLID 600 MG/ISO-OSM 300 ML IV SCH ×2 (04:35→17:55)
[2023-01-24] MEDS: INSULIN HUMULIN R 100 UNIT/ML 3ML SQ SCH ×3 (04:44→17:58)
[2023-01-24 04:45] LABS: BASOPHILS % (AUTO) 0.6 % (0.0-5.0); EOSINOPHILS % (AUTO) 4.2 % (0.0-8.0); HEMATOCRIT 40.4 % (36-48); LYMPHOCYTES % (AUTO) 13.5 % (21.0-51.0); MEAN CORPUSCULAR HEMOGLOBIN 28.7 pg (27.0-33.0); MEAN CORPUSCULAR HGB CONC 30.4 g/dL (32.0-36.0); MEAN CORPUSCULAR VOLUME 94.2 fL (79-99); MONOCYTES % (AUTO) 4.3 % (3.0-13.0); NEUTROPHILS % (AUTO) 76.8 % (40.0-77.0); PLATELET COUNT (AUTO) 323 K/uL (130-400); RED BLOOD CELL COUNT(AUTO) 4.29 MIL/uL (4.00-5.50); RED CELL DISTRIBUTION WIDTH 13.7 % (11.0-15.5); WHITE BLOOD COUNT (AUTO) 10.3 K/uL (4.8-10.8)
[2023-01-24] MEDS: CHLORHEXIDINE GLUCONATE 473 ML MOUTHWASH MM SCH ×3 (04:49→17:56)
[2023-01-24 05:07] LABS: CREATININE 1.5 mg/dL (0.5-1.5)
[2023-01-24 05:34] LABS: B-TYPE NATRIURETIC PEPTIDE 149 pg/mL (0-100)
[2023-01-24] MEDS: IPRATROPIUM/ALBUTEROL SULFATE 3 ML SOLUTION IH SCH ×5 (06:52→22:59)
[2023-01-24] MEDS: METOPROLOL TARTRATE 25 MG TAB PO SCH (08:35)
[2023-01-24] MEDS: ASPIRIN 81MG CHEW TAB PO SCH (08:35)
[2023-01-24] MEDS: AMLODIPINE 5 MG TAB PO SCH (08:35)
[2023-01-24] MEDS: THIAMINE HCL 100 MG TABLET PO SCH (08:35)
[2023-01-24] MEDS: ROPINIROLE HCL 1 MG TABLET PO SCH ×3 (08:35→20:07)
[2023-01-24] MEDS: MULTIVITAMIN WITH MINERALS TABLET PO SCH (08:35)
[2023-01-24] MEDS: Vitamin B Complex/Vit C/Folic Acid PO SCH (08:35)
[2023-01-24] MEDS: ENOXAPARIN SODIUM 30 MG/0.3 ML SQ SCH (08:36)
[2023-01-24] MEDS: FAMOTIDINE 20MG VIAL IV SCH (08:36)
[2023-01-24] MEDS: NYSTATIN 15 GM POWDER TP SCH ×3 (08:37→20:07)
[2023-01-24] MEDS ORDERED: IPRATROPIUM/ALBUTEROL SULFATE 3 ML SOLUTION IH ONE (10:47)
[2023-01-24] MEDS: LACTULOSE 20 GM/30 ML UDCUP PO SCH (13:45)
[2023-01-24] MEDS: FLUCONAZOLE 200 MG/NS 100 ML 100 ML IV SCH (14:25)
[2023-01-24] MEDS: ATORVASTATIN 20 MG TABLET PO SCH (20:07)
[2023-01-24] MEDS: ARTIFICIAL TEARS 3.5 GM OINTMENT OU SCH (20:07)
[2023-01-25] VITALS: BP 144/67
[2023-01-25] MEDS: CHLORHEXIDINE GLUCONATE 473 ML MOUTHWASH MM SCH ×4 (01:15→18:00)
[2023-01-25 04:17] LABS: BASOPHILS % (AUTO) 0.7 % (0.0-5.0); HEMATOCRIT 43.4 % (36-48); LYMPHOCYTES % (AUTO) 14.6 % (21.0-51.0); MEAN CORPUSCULAR HEMOGLOBIN 28.6 pg (27.0-33.0); MEAN CORPUSCULAR HGB CONC 30.6 g/dL (32.0-36.0); MEAN CORPUSCULAR VOLUME 93.3 fL (79-99); MONOCYTES % (AUTO) 6.2 % (3.0-13.0); NEUTROPHILS % (AUTO) 74.8 % (40.0-77.0); PLATELET COUNT (AUTO) 254 K/uL (130-400); RED BLOOD CELL COUNT(AUTO) 4.65 MIL/uL (4.00-5.50); RED CELL DISTRIBUTION WIDTH 13.6 % (11.0-15.5); WHITE BLOOD COUNT (AUTO) 11.8 K/uL (4.8-10.8)
[2023-01-25 04:34] LABS: CREATININE 1.3 mg/dL (0.5-1.5)
[2023-01-25 04:39] VITALS: BP 152/69
[2023-01-25] MEDS: LINEZOLID 600 MG/ISO-OSM 300 ML IV SCH ×2 (04:59→15:42)
[2023-01-25] MEDS: INSULIN HUMULIN R 100 UNIT/ML 3ML SQ SCH ×4 (06:00→18:00)
[2023-01-25] MEDS: IPRATROPIUM/ALBUTEROL SULFATE 3 ML SOLUTION IH SCH ×4 (06:25→23:30)
[2023-01-25 08:13] VITALS: BP 121/64
[2023-01-25] MEDS: ENOXAPARIN SODIUM 30 MG/0.3 ML SQ SCH (09:37)
[2023-01-25] MEDS: Vitamin B Complex/Vit C/Folic Acid PO SCH (09:39)
[2023-01-25] MEDS: MULTIVITAMIN WITH MINERALS TABLET PO SCH (09:39)
[2023-01-25] MEDS: ROPINIROLE HCL 1 MG TABLET PO SCH ×3 (09:39→20:18)
[2023-01-25] MEDS: FAMOTIDINE 20MG VIAL IV SCH (09:39)
[2023-01-25] MEDS: AMLODIPINE 5 MG TAB PO SCH (09:40)
[2023-01-25] MEDS: THIAMINE HCL 100 MG TABLET PO SCH (09:40)
[2023-01-25] MEDS: ASPIRIN 81MG CHEW TAB PO SCH (09:40)
[2023-01-25] MEDS: NYSTATIN 15 GM POWDER TP SCH ×3 (09:43→20:40)
[2023-01-25] MEDS: LACTULOSE 20 GM/30 ML UDCUP PO SCH (11:58)
[2023-01-25 12:11] VITALS: BP 141/65
[2023-01-25] MEDS: FLUCONAZOLE 200 MG/NS 100 ML 100 ML IV SCH (14:09)
[2023-01-25 16:26] VITALS: BP 146/79
[2023-01-25 19:52] VITALS: BP 126/60
[2023-01-25] MEDS: ATORVASTATIN 20 MG TABLET PO SCH (20:20)
[2023-01-25] MEDS: ARTIFICIAL TEARS 3.5 GM OINTMENT OU SCH (20:40)
[2023-01-26 00:45] VITALS: BP 143/89
[2023-01-26 04:15] VITALS: BP 152/60
[2023-01-26] MEDS: LINEZOLID 600 MG/ISO-OSM 300 ML IV SCH (04:17)
[2023-01-26] MEDS: INSULIN HUMULIN R 100 UNIT/ML 3ML SQ SCH ×4 (06:00→18:00)
[2023-01-26] MEDS: CHLORHEXIDINE GLUCONATE 473 ML MOUTHWASH MM SCH ×4 (06:00→18:19)
[2023-01-26] MEDS: IPRATROPIUM/ALBUTEROL SULFATE 3 ML SOLUTION IH SCH ×3 (07:22→18:40)
[2023-01-26 08:11] VITALS: BP 152/63
[2023-01-26 09:23] LABS: MEAN CORPUSCULAR HEMOGLOBIN 29.1 pg (27.0-33.0); MEAN CORPUSCULAR HGB CONC 31.7 g/dL (32.0-36.0); MEAN CORPUSCULAR VOLUME 91.8 fL (79-99); RED BLOOD CELL COUNT(AUTO) 3.92 MIL/uL (4.00-5.50); RED CELL DISTRIBUTION WIDTH 13.9 % (11.0-15.5); WHITE BLOOD COUNT (AUTO) 8.7 K/uL (4.8-10.8)
[2023-01-26 09:46] LABS: CREATININE 1.2 mg/dL (0.5-1.5); POTASSIUM 3.8 mmol/L (3.5-5.1)
[2023-01-26] MEDS: AMLODIPINE 5 MG TAB PO SCH (11:51)
[2023-01-26] MEDS: FAMOTIDINE 20MG VIAL IV SCH (11:51)
[2023-01-26] MEDS: ASPIRIN 81MG CHEW TAB PO SCH (11:51)
[2023-01-26] MEDS: THIAMINE HCL 100 MG TABLET PO SCH (11:51)
[2023-01-26] MEDS: ROPINIROLE HCL 1 MG TABLET PO SCH ×3 (11:51→21:28)
[2023-01-26] MEDS: MULTIVITAMIN WITH MINERALS TABLET PO SCH (11:51)
[2023-01-26] MEDS: NYSTATIN 15 GM POWDER TP SCH ×3 (11:52→21:29)
[2023-01-26] MEDS: ENOXAPARIN SODIUM 30 MG/0.3 ML SQ SCH (11:59)
[2023-01-26] MEDS: Vitamin B Complex/Vit C/Folic Acid PO SCH (11:59)
[2023-01-26] MEDS: LACTULOSE 20 GM/30 ML UDCUP PO SCH (11:59)
[2023-01-26 12:40] VITALS: BP 140/63
[2023-01-26] MEDS: FLUCONAZOLE 200 MG/NS 100 ML 100 ML IV SCH (14:45)
[2023-01-26 16:29] VITALS: BP 133/63
[2023-01-26 20:07] VITALS: BP 116/80
[2023-01-26] MEDS: ATORVASTATIN 20 MG TABLET PO SCH (21:28)
[2023-01-26] MEDS: ARTIFICIAL TEARS 3.5 GM OINTMENT OU SCH (21:29)
[2023-01-27] MEDS: IPRATROPIUM/ALBUTEROL SULFATE 3 ML SOLUTION IH SCH ×4 (00:27→19:01)
[2023-01-27 00:48] VITALS: BP 131/57
[2023-01-27 04:00] VITALS: BP 113/61
[2023-01-27] MEDS: INSULIN HUMULIN R 100 UNIT/ML 3ML SQ SCH ×4 (05:41→17:09)
[2023-01-27] MEDS: CHLORHEXIDINE GLUCONATE 473 ML MOUTHWASH MM SCH ×4 (05:42→18:00)
[2023-01-27 07:54] VITALS: BP 139/52
[2023-01-27] MEDS: ENOXAPARIN SODIUM 30 MG/0.3 ML SQ SCH (09:23)
[2023-01-27] MEDS: AMLODIPINE 5 MG TAB PO SCH (09:24)
[2023-01-27] MEDS: MULTIVITAMIN WITH MINERALS TABLET PO SCH (09:24)
[2023-01-27] MEDS: FAMOTIDINE 20MG VIAL IV SCH (09:24)
[2023-01-27] MEDS: ASPIRIN 81MG CHEW TAB PO SCH (09:24)
[2023-01-27] MEDS: THIAMINE HCL 100 MG TABLET PO SCH (09:24)
[2023-01-27] MEDS: Vitamin B Complex/Vit C/Folic Acid PO SCH (09:24)
[2023-01-27] MEDS: ROPINIROLE HCL 1 MG TABLET PO SCH ×3 (09:24→22:16)
[2023-01-27] MEDS: NYSTATIN 15 GM POWDER TP SCH ×3 (09:25→22:17)
[2023-01-27 11:40] VITALS: BP 134/54
[2023-01-27] MEDS: LACTULOSE 20 GM/30 ML UDCUP PO SCH (14:11)
[2023-01-27] MEDS: FLUCONAZOLE 200 MG/NS 100 ML 100 ML IV SCH (14:12)
[2023-01-27] MEDS: ALPRAZOLAM 0.5 MG TABLET PO PRN (16:15)
[2023-01-27 16:18] VITALS: BP 144/56
[2023-01-27 19:05] VITALS: BP 135/58
[2023-01-27] MEDS: ATORVASTATIN 20 MG TABLET PO SCH (22:16)
[2023-01-27] MEDS: ARTIFICIAL TEARS 3.5 GM OINTMENT OU SCH (22:17)
[2023-01-28 00:05] VITALS: BP 127/59
[2023-01-28] MEDS: IPRATROPIUM/ALBUTEROL SULFATE 3 ML SOLUTION IH SCH ×5 (01:04→23:56)
[2023-01-28 03:05] VITALS: BP 130/53
[2023-01-28] MEDS: INSULIN HUMULIN R 100 UNIT/ML 3ML SQ SCH ×5 (05:53→23:35)
[2023-01-28] MEDS: CHLORHEXIDINE GLUCONATE 473 ML MOUTHWASH MM SCH ×5 (05:54→23:35)
[2023-01-28 07:32] VITALS: BP 137/56
[2023-01-28] MEDS: ROPINIROLE HCL 1 MG TABLET PO SCH ×3 (09:07→21:10)
[2023-01-28] MEDS: AMLODIPINE 5 MG TAB PO SCH (09:07)
[2023-01-28] MEDS: MULTIVITAMIN WITH MINERALS TABLET PO SCH (09:07)
[2023-01-28] MEDS: THIAMINE HCL 100 MG TABLET PO SCH (09:07)
[2023-01-28] MEDS: Vitamin B Complex/Vit C/Folic Acid PO SCH (09:07)
[2023-01-28] MEDS: ASPIRIN 81MG CHEW TAB PO SCH (09:07)
[2023-01-28] MEDS: FAMOTIDINE 20MG VIAL IV SCH (09:07)
[2023-01-28] MEDS: ENOXAPARIN SODIUM 30 MG/0.3 ML SQ SCH (09:08)
[2023-01-28] MEDS: NYSTATIN 15 GM POWDER TP SCH ×3 (09:09→21:13)
[2023-01-28 11:23] VITALS: BP 134/54
[2023-01-28] MEDS: LACTULOSE 20 GM/30 ML UDCUP PO SCH (12:30)
[2023-01-28 15:58] VITALS: BP 143/61
[2023-01-28] MEDS: ACETAMINOPHEN 325 MG TAB PO PRN (17:06)
[2023-01-28] MEDS: FLUCONAZOLE 200 MG/NS 100 ML 100 ML IV SCH (17:06)
[2023-01-28 19:06] VITALS: BP 135/72
[2023-01-28] MEDS: SODIUM CHLORIDE 3% FOR INHALATION 4 ML/AMP VIAL.NEB IH SCH ×2 (20:03→23:56)
[2023-01-28] MEDS: ATORVASTATIN 20 MG TABLET PO SCH (21:10)
[2023-01-28] MEDS: ARTIFICIAL TEARS 3.5 GM OINTMENT OU SCH (21:13)
[2023-01-29] VITALS (7 sets, daily range): BP systolic 135–164; BP diastolic 56–77
[2023-01-29 04:13] LABS: BASOPHILS % (AUTO) 0.9 % (0.0-5.0); HEMATOCRIT 32.5 % (36-48); LYMPHOCYTES % (AUTO) 23.9 % (21.0-51.0); MEAN CORPUSCULAR HEMOGLOBIN 28.5 pg (27.0-33.0); MEAN CORPUSCULAR HGB CONC 31.7 g/dL (32.0-36.0); MEAN CORPUSCULAR VOLUME 89.8 fL (79-99); MONOCYTES % (AUTO) 7.6 % (3.0-13.0); NEUTROPHILS % (AUTO) 64.1 % (40.0-77.0); PLATELET COUNT (AUTO) 215 K/uL (130-400); RED BLOOD CELL COUNT(AUTO) 3.62 MIL/uL (4.00-5.50); WHITE BLOOD COUNT (AUTO) 6.3 K/uL (4.8-10.8)
[2023-01-29 04:34] LABS: CREATININE 1.2 mg/dL (0.5-1.5); POTASSIUM 3.1 mmol/L (3.5-5.1)
[2023-01-29] MEDS: CHLORHEXIDINE GLUCONATE 473 ML MOUTHWASH MM SCH ×4 (05:06→21:27)
[2023-01-29] MEDS: POTASSIUM CHLORIDE 10% ELIXIR 20 MEQ/15 ML UDCUP PO PRN ×2 (05:16→10:34)
[2023-01-29] MEDS: INSULIN HUMULIN R 100 UNIT/ML 3ML SQ SCH ×4 (05:30→23:17)
[2023-01-29] MEDS: IPRATROPIUM/ALBUTEROL SULFATE 3 ML SOLUTION IH SCH ×4 (07:11→23:47)
[2023-01-29] MEDS: SODIUM CHLORIDE 3% FOR INHALATION 4 ML/AMP VIAL.NEB IH SCH ×4 (07:17→23:47)
[2023-01-29] MEDS: THIAMINE HCL 100 MG TABLET PO SCH (10:33)
[2023-01-29] MEDS: AMLODIPINE 5 MG TAB PO SCH (10:33)
[2023-01-29] MEDS: ASPIRIN 81MG CHEW TAB PO SCH (10:34)
[2023-01-29] MEDS: Vitamin B Complex/Vit C/Folic Acid PO SCH (10:34)
[2023-01-29] MEDS: NYSTATIN 15 GM POWDER TP SCH ×3 (10:37→21:27)
[2023-01-29] MEDS: ENOXAPARIN SODIUM 30 MG/0.3 ML SQ SCH (10:37)
[2023-01-29] MEDS: MULTIVITAMIN WITH MINERALS TABLET PO SCH (12:36)
[2023-01-29] MEDS: LACTULOSE 20 GM/30 ML UDCUP PO SCH (12:45)
[2023-01-29] MEDS: ROPINIROLE HCL 1 MG TABLET PO SCH ×3 (12:45→21:26)
[2023-01-29] MEDS: FAMOTIDINE 20MG VIAL IV SCH (12:45)
[2023-01-29] MEDS: ALPRAZOLAM 0.5 MG TABLET PO PRN ×2 (14:53→21:58)
[2023-01-29] MEDS: FLUCONAZOLE 200 MG/NS 100 ML 100 ML IV SCH (14:53)
[2023-01-29] MEDS: ARTIFICIAL TEARS 3.5 GM OINTMENT OU SCH (21:26)
[2023-01-29] MEDS: ATORVASTATIN 20 MG TABLET PO SCH (21:26)
[2023-01-30 04:06] VITALS: BP 115/85
[2023-01-30 04:26] LABS: BASOPHILS % (AUTO) 0.6 % (0.0-5.0); EOSINOPHILS % (AUTO) 1.9 % (0.0-8.0); HEMATOCRIT 37.1 % (36-48); LYMPHOCYTES % (AUTO) 23.3 % (21.0-51.0); MEAN CORPUSCULAR HEMOGLOBIN 28.2 pg (27.0-33.0); MEAN CORPUSCULAR HGB CONC 31.3 g/dL (32.0-36.0); MEAN CORPUSCULAR VOLUME 90.3 fL (79-99); MONOCYTES % (AUTO) 8.2 % (3.0-13.0); NEUTROPHILS % (AUTO) 65.8 % (40.0-77.0); PLATELET COUNT (AUTO) 239 K/uL (130-400); RED BLOOD CELL COUNT(AUTO) 4.11 MIL/uL (4.00-5.50); RED CELL DISTRIBUTION WIDTH 13.9 % (11.0-15.5); WHITE BLOOD COUNT (AUTO) 8.9 K/uL (4.8-10.8)
[2023-01-30 04:42] LABS: CREATININE 1.1 mg/dL (0.5-1.5); POTASSIUM 4.1 mmol/L (3.5-5.1)
[2023-01-30] MEDS: CHLORHEXIDINE GLUCONATE 473 ML MOUTHWASH MM SCH ×2 (05:25→12:54)
[2023-01-30] MEDS: SODIUM CHLORIDE 3% FOR INHALATION 4 ML/AMP VIAL.NEB IH SCH ×2 (06:14→11:40)
[2023-01-30 07:04] VITALS: BP 148/76
[2023-01-30] MEDS: MULTIVITAMIN WITH MINERALS TABLET PO SCH (09:00)
[2023-01-30] MEDS: Vitamin B Complex/Vit C/Folic Acid PO SCH (09:00)
[2023-01-30] MEDS: ASPIRIN 81MG CHEW TAB PO SCH (09:01)
[2023-01-30] MEDS: ROPINIROLE HCL 1 MG TABLET PO SCH ×2 (09:01→14:15)
[2023-01-30] MEDS: AMLODIPINE 5 MG TAB PO SCH (09:01)
[2023-01-30] MEDS: NYSTATIN 15 GM POWDER TP SCH ×2 (09:01→14:15)
[2023-01-30] MEDS: THIAMINE HCL 100 MG TABLET PO SCH (09:01)
[2023-01-30] MEDS: FAMOTIDINE 20MG VIAL IV SCH (09:01)
[2023-01-30 11:04] VITALS: BP 153/58
[2023-01-30] MEDS: LACTULOSE 20 GM/30 ML UDCUP PO SCH (12:54)
== END 2023-01-30 14:40 | DRG 4 ==
LOC: EDH 21:32 → EDHIP 12-31 02:09 → 2BH 12-31 03:55 → 2AH 01-24 12:49
PROVIDERS: ADMIT Internal Medicine Critical Care Medicine; ATTEND Internal Medicine Critical Care Medicine
PROC: 0BH17EZ Insertion of Endotracheal Airway into Trachea, Via Natural or Artificial Opening (ICD-10-PCS; 2022-12-30)
PROC: 5A1955Z Respiratory Ventilation, Greater than 96 Consecutive Hours (ICD-10-PCS; 2022-12-30)
PROC: 02HV33Z Insertion of Infusion Device into Superior Vena Cava, Percutaneous Approach (ICD-10-PCS; 2022-12-31)
PROC: 5A09357 Assistance with Respiratory Ventilation, Less than 24 Consecutive Hours, Continuous Positive Airway Pressure (ICD-10-PCS; 2023-01-07)
PROC: 0DH63UZ Insertion of Feeding Device into Stomach, Percutaneous Approach (ICD-10-PCS; 2023-01-12)
PROC: 0B113F4 Bypass Trachea to Cutaneous with Tracheostomy Device, Percutaneous Approach (ICD-10-PCS; principal; 2023-01-19 09:27)
PROC: 5A09357 Assistance with Respiratory Ventilation, Less than 24 Consecutive Hours, Continuous Positive Airway Pressure (ICD-10-PCS; 2023-01-21)
DX: A41.9 Sepsis, unspecified organism (principal); J96.01 Acute respiratory failure with hypoxia; J96.02 Acute respiratory failure with hypercapnia; R57.0 Cardiogenic shock; G93.41 Metabolic encephalopathy; I50.33 Acute on chronic diastolic (congestive) heart failure; J15.211 Pneumonia due to Methicillin susceptible Staphylococcus aureus; R65.21 Severe sepsis with septic shock; I21.4 Non-ST elevation (NSTEMI) myocardial infarction; E87.1 Hypo-osmolality and hyponatremia; I25.110 Atherosclerotic heart disease of native coronary artery with unstable angina pectoris; E44.0 Moderate protein-calorie malnutrition; F10.231 Alcohol dependence with withdrawal delirium; G72.81 Critical illness myopathy; I13.0 Hypertensive heart and chronic kidney disease with heart failure and stage 1 through stage 4 chronic kidney disease, or unspecified chronic kidney disease; I16.1 Hypertensive emergency; N17.9 Acute kidney failure, unspecified; N30.00 Acute cystitis without hematuria; Z16.24 Resistance to multiple antibiotics; D50.9 Iron deficiency anemia, unspecified; E11.22 Type 2 diabetes mellitus with diabetic chronic kidney disease; E11.51 Type 2 diabetes mellitus with diabetic peripheral angiopathy without gangrene; E11.65 Type 2 diabetes mellitus with hyperglycemia; E66.01 Morbid (severe) obesity due to excess calories; E78.00 Pure hypercholesterolemia, unspecified; E87.6 Hypokalemia; G89.29 Other chronic pain; I48.91 Unspecified atrial fibrillation; I80.8 Phlebitis and thrombophlebitis of other sites; N18.32 Chronic kidney disease, stage 3b; R13.12 Dysphagia, oropharyngeal phase; R62.7 Adult failure to thrive; Z68.34 Body mass index [BMI] 34.0-34.9, adult; Z74.01 Bed confinement status; Z93.1 Gastrostomy status
CPT/HCPCS: 36415; 36600; 43246; 70450; 71045; 71270; 76770; 80048; 80053; 80061; 80202; 81001; 82140; 82435; 82803; 82947; 82948; 83036; 83605; 83615; 83735; 83880; 84100; 84132; 84145; 84295; 84484; 85018; 85025; 85027; 85378; 85610; 85730; 87040; 87070; 87071; 87077; 87088; 87186; 87205; 87635; 87804; 93005; 93306; 93356; 93970; 93971; 94003; 94640; 94660; 94664; 94667; 94668; 97039; 99291; A4606; C1751; C9803; G0378; J0330; J0360; J0692; J0696; J1100; J1450; J1650; J1815; J1940; J2001; J2020; J2060; J2250; J2270; J2370; J2405; J2704; J3010; J3370; J3411; J3475; J3480; J3490; J7070; Q9967

== ENCOUNTER → 2023-11-05 | Outpatient (CLI) | payer MEDICARE | END | disposition home or self-care (01) | LOC: SHCH 12:31 | PROVIDERS: ATTEND Internal Medicine Cardiovascular Disease | DX: I70.203 Unspecified atherosclerosis of native arteries of extremities, bilateral legs (principal); I87.2 Venous insufficiency (chronic) (peripheral); I87.1 Compression of vein | CPT/HCPCS: 93925; 93970 ==

== ENCOUNTER → 2024-06-18 | Outpatient (CLI) | payer MEDICARE | END | disposition home or self-care (01) | LOC: SHCH 07:34 | PROVIDERS: ATTEND Internal Medicine Cardiovascular Disease | DX: I71.40 Abdominal aortic aneurysm, without rupture, unspecified (principal) | CPT/HCPCS: 93978 ==

== ENCOUNTER → 2025-04-06 | Outpatient (CLI) | payer MEDICARE ==
[~2025-04-06] MED LIST changes: +ATOR20TA65 PO; +CHOL4POW4 PO; +ESCI-8 PO; -IOHEXOL 350 MG/ML 100ML INFUS..BTL IV ONE; -IOHEXOL-350 50ML VIAL IV ONE; +MELA10TA3 PO; +ONDA-104 PO; +PRAM0.5T12 PO; +TIZA4CAP8 PO; +TRAM50TA4 PO; +TRAZ-258 PO
== END | disposition home or self-care (01) ==
LOC: WHH 09:48
PROVIDERS: ATTEND Family Medicine
DX: I87.313 Chronic venous hypertension (idiopathic) with ulcer of bilateral lower extremity (principal); L97.812 Non-pressure chronic ulcer of other part of right lower leg with fat layer exposed; L97.822 Non-pressure chronic ulcer of other part of left lower leg with fat layer exposed; E55.9 Vitamin D deficiency, unspecified; G47.00 Insomnia, unspecified; I25.10 Atherosclerotic heart disease of native coronary artery without angina pectoris; F41.9 Anxiety disorder, unspecified; F32.A Depression, unspecified; Z87.891 Personal history of nicotine dependence; Z98.49 Cataract extraction status, unspecified eye; Z90.49 Acquired absence of other specified parts of digestive tract
CPT/HCPCS: G0463; A6197; A4450